=== PATIENT | female | born 1940 | race Caucasian/White ===

== ENCOUNTER 2018-10-21 09:50 | Inpatient (IN) | payer OTHER ==
--- OUTSIDE RECORDS SUMMARY | 2018-10-21 11:02 | XMS REPORT | Continuity of Care Document ---
:1940 Author Organization Interface Problems Problem Status Onset Classification Date Comments Source Date Reported Afib Active Problem 05/19/2018 [facility] Medications Medication Details Route Status Patient Ordering Order Source Instructions Provider Date Lisinop[facility] PO, Daily, [facility] gabap[facility] PO, 0 Active 03[facility]20[facility]20 [facility] Xarelto PO, 0 Active 03/20/20 [facility] Refill([facility]) 18 [facility] Flecainide PO, Q12H, Active 03/20/20 [facility] 0 18 [facility] Refill(s) metoprolol PO, Daily, Active 03/20/20 [facility] release Refill(s) Allergies, Adverse Reactions, Alerts Substance Category Reaction Severity Reaction Status Date Comments Source type Reported Immunizations Immunization Date Given Site Status Last Updated Comments Source Results Order Results Value Reference Date Interpretation Comments Source Name Range Vital Signs Vital Sign Value Date Comments Source Height 163.83 cm 03/18/2018 [facility] Weight 45.568 03/18/2018 [facility] BMI Calculated 16.98 03/18/2018 [facility] Systolic (mm Hg) 172 03/18/2018 [facility] Diastolic (mm Hg) 66 03/18/2018 [facility] Temperature Oral (F) 98.8 F 03/18/2018 [facility] Heart Rate 72 03/18/2018 [facility] Encounters Location Location Encounter Encounter Reason Attending ADM DC Status Source Details Type Number For Provider Date Date Visit [facility] Phone [id number] 02/09 02/11 [facility] Message /2017 [facility] [id number] IRMA GALAVIZ 03/18 Active [facility] [id number] Irma Galaviz 03/18 03/19 [facility] /2017 [facility] [id number] 04/01 04/03 [facility] Message /2017 [facility] [id number] 04/07 04/09 [facility] Message /2017 [facility] Phone [id number] 04/20 04/22 [facility] Message /2017 Neuro [facility] Phone [id number] 04/28 04/30 [facility] Message /2017 Neuro [facility] Procedures Procedure Code Date Perfomer Comments Source Resection [id number] [facility] Tendon operation [id number] [facility]
--- OUTSIDE RECORDS SUMMARY | 2018-10-21 11:02 | XMS REPORT | Clinical Summary ---
:1940 Author Organization [facility] Address [address] [place] [address] Care Team Providers Name Role Phone True Harris Primary Care Provider Allergies Active Allergy Reactions Severity Noted Date Comments Hydrocodone-Acetaminop Other (See Comments) 06/17/2017 "Crazy dreams, doesn't hen sit well with me" Medications Medication Sig Dispensed Refills Start Date End Date Status flecainide (TAMBOCOR) Take 50 mg by 0 Active 50 MG tablet mouth 2 (two) times daily. lisinopril Take 10 mg by 0 Active (PRINIVIL,ZESTRIL) 10 mouth daily. MG tablet metoprolol (TOPROL-XL) Take 50 mg by 0 Active 50 MG 24 hr tablet mouth daily. rivaroxaban (XARELTO) Take by mouth. 0 Active 15 mg Tab tablet PSYLLIUM SEED, WITH Take by mouth as 0 Active DEXTROSE, (FIBER ORAL) needed. cetirizine (ZYRTEC) 10 Take 10 mg by 0 Active MG tablet mouth daily. magnesium 250 mg Tab Take by mouth 0 Active tablet daily . Active Problems Not on file Social History Tobacco Use Types Packs/Day Years Used Date Current Every Day Smoker 1 50 Smokeless Tobacco: Never Used Alcohol Use Drinks/Week oz/Week Comments Yes 21 Cans of beer 12.6 Sex Assigned at Date Recorded Not on file Job Start Date Occupation Industry Not on file Not on file Not on file Travel History Travel Start Travel End No recent travel history available. Last Filed Vital Signs Not on file Plan of Treatment Not on file Results Not on fileafter 10/20/2017 Insurance Payer Benefit Plan / Subscriber ID Type Phone Address Group [employer] - MEDICARE AETNA MEDICARE HMO xxxxxxxx [phone] [address] [employer] POS PPO ADDIE HUNTER [phone]
--- OUTSIDE RECORDS SUMMARY | 2018-10-21 11:02 | XMS REPORT ---
:1940 [facility] Address [address] [place] [address] Dr. Francois [address] [place] [id number] Care Team Providers Name Role Phone RACHEL ARROYO Unavailable Unavailable Problems This patient has no known problems. Allergies, Adverse Reactions, Alerts This patient has no known allergies or adverse reactions. Medications This patient has no known medications. Results Test Description Test Time Test Comments Text Results Atomic Results Result Comments TISSUE EXAM 2017-07-02 18:20:00 Surgical Pathology Report Case: [id number] Authorizing Provider: Rachel Arroyo MD Collected: 07/01/2017 0919 Ordering Location: [facility] Endoscopy Received: 07/01/2017 1338 Services Pathologist: Wily Nielson MD Specimen: Biopsy, Gastric, gastric bx for erythema GASTRIC BIOPSY- CHRONIC INACTIVE GASTRITIS- NO INTESTINAL METAPLASIA, NO DYSPLASIA AND NO MALIGNANCY IDENTIFIED- NO HELICOBACTER PYLORI ORGANISMS IDENTIFIED ON WARTHIN-STARRY STAIN Signing Pathologist Direct Phone Line: [phone] signed by Wily Nielson MD on 07/02/2017 at 6:20 [id number], [id number] in appetite, erythemaGastric biopsyThe specimen is received in a formalin-filled container labeled with the patient's information and labeled "gastric biopsy" and consists of three round fragments of bellamy tissue ranging from 0.1 to 0.2 cm, submitted in A1. CG/ew Sections reveal fragments of benign antral and corpus mucosa with mild chronic inflammation. No active gastritis is seen. No Helicobacter pylori organisms are identified on Warthin - Starry stain. Intestinal metaplasia, dysplasia and malignancy are not seen.The following special studies were performed on this case and the interpretation is incorporated in the diagnostic report above:IMMUNOHISTOCHEMISTRY/SPECIAL STAIN SUMMARY:The results of immunohistochemical studies and/or special stains are as follows:Warthin-Starry stain - No Helicobacter pylori organisms identified
[2018-10-21] MEDS ORDERED: METOPROLOL TARTRATE 5 MG/5 ML INJ IV STA (11:37)
[2018-10-21 11:59] VITALS: BMI 16.0
[2018-10-21 12:10] LABS: Absolute Lymphocytes (CBC) 1.3 K/uL (0.7-4.9); Absolute Neutrophil 6.1 K/uL (1.8-8.0); Basophils % 0.2 % (0-1.3); Hematocrit 42.9 % (36.0-45.0); Lymphocytes % 15.1 % (15.3-44.8); MCH 34.4 pg (27.0-35.0); MCV 98.1 fL (80-100); MPV 7.5 fL (7.6-11.3); RBC Red Blood Cell Count 4.37 M/uL (3.86-4.86)
[2018-10-21 12:29] LABS: Albumin 4.2 g/dL (3.4-5.0); Bilirubin Total 0.9 mg/dL (0.2-1.0); Magnesium 1.8 mg/dL (1.8-2.4); Potassium 3.6 mmol/L (3.5-5.1); Protein, Total 8.2 g/dL (6.4-8.2)
[2018-10-21] MEDS: ALBUTEROL 2.5 MG/3 ML NEB SOL NEB SCH ×3 (12:53→20:00)
[2018-10-21] MEDS: IPRATROPIUM BROM 0.5MG/2.5ML NEB SCH ×3 (12:53→20:00)
--- NOTE | 2018-10-21 12:58 | RAD REPORT ---
EXAM DESCRIPTION: Yadira Pa And Lat (2 Views)10/21/2018 12:50 pm CLINICAL HISTORY: Shortness of breath COMPARISON: September 2018 FINDINGS: Lungs are markedly hyperaerated. The lungs appear clear of acute infiltrate. The heart is normal size IMPRESSION: COPD without visualization acute abnormality
[2018-10-21] MEDS ORDERED: CEFTRIAXONE 1 GM/NS 50 ML 1 GM/50 ML BAG IV SCH (14:00)
[2018-10-21] MEDS: CEFTRIAXONE/SWI 1gm 1 GM/10 ML SYR IV SCH ×2 (14:21→20:28)
[2018-10-21] MEDS: METHYLPREDNISOLONE 40 MG INJ IV SCH ×2 (14:22→17:37)
[2018-10-21] MEDS: METOPROLOL TAR 25 MG TAB PO SCH (17:35)
[2018-10-21] MEDS: RIVAROXABAN 15 MG TABLET PO SCH (17:37)
[2018-10-21 18:35] LABS: Urine Appearance CLEAR; Urine Blood NEGATIVE (NEG); Urine Color YELLOW; Urine Glucose NEGATIVE (NEG); Urine Protein 1+ (NEG); Urine pH 6.5 (5.0-7.0)
[2018-10-21] MEDS ORDERED: POTASSIUM CL SA 10 MEQ TAB PO ONE (19:00)
[2018-10-21 19:04] LABS: Urine Bilirubin 1+ (NEG)
[2018-10-21] MEDS ORDERED: MAGNESIUM SULFATE 1 gm IVPB 1 GM/100 ML BAG IV ONE (19:04)
[2018-10-21 19:16] LABS: Urine Bacteria 20-50 /HPF (<20); Urine Culture Reflex Order REFLEXED; Urine Mucus 2+ /HPF (NONE SEEN); Urine RBC <5 /HPF (NONE SEEN)
[2018-10-21] MEDS: FLECAINIDE 50 MG PO SCH (20:28)
[2018-10-22] MEDS: IPRATROPIUM BROM 0.5MG/2.5ML NEB SCH ×6 (00:10→20:25)
[2018-10-22] MEDS: ALBUTEROL 2.5 MG/3 ML NEB SOL NEB SCH ×5 (00:10→15:45)
[2018-10-22] MEDS: METHYLPREDNISOLONE 40 MG INJ IV SCH ×3 (00:33→16:21)
--- NOTE | 2018-10-22 04:47 | HP ---
Date of Admission: 10/21/2018 Chief Complaint: Shortness of breath, cough, congestion. History Of Present Illness: This is a 77-year-old pleasant female patient who lives at home with her , who was sick with acute bronchitis recently and he is improving, but in last few days, the patient started getting sick with cough, chest congestion, shortness of breath, coughing up yellowish -colored mucus. She has a lot of wheezing and she gets short of breath just walking in the room, jozef ing few steps. She feels very weak and tired. She came into office today, after she was evaluated, decision was made to admit her to hospital as I was concerned about pneumonia and acute exacerbation of COPD. The patient's heart rate at office was noted to be 156, irregular, and she has a history of atrial fibrillation in the past. Lately, she has been in sinus rhythm, and I believe that with this acute illness, she has gone back into atrial fibrillation. I did contact her inspector type, Dr. Cal swanson. Dr. Troy had prescribed her Xarelto 15 mg p.o. daily for atrial fibrillation, but sometime i n March or April of this year, he discontinued Xarelto and started her on Plavix after he did angioplast y with stent placement in her leg. So, currently the patient is on aspirin and Plavix. I did talk t o Dr. Troy about today's office visit and problem with atrial fibrillation again and he agreed to discontinue Plavix and advised to add Xarelto 15 mg daily and to continue aspirin 81 mg daily. Past Medical History: Significant for diverticulosis, osteopenia, paroxysmal atrial fibrillation, pe ripheral vascular disease, hyperlipidemia, hypertension, peripheral vascular disease, anxiety. Past Surgical History: Partial colectomy in 2000 due to diverticulitis; angioplasty of left leg on 2017; angioplasty of right leg on March 21, 2018; hysterectomy; appendectomy; cataract surgery. Allergies: NO KNOWN ALLERGIES. Family History: Not pertinent. Social History: Positive for smoking. Use of alcohol negative. Review of Systems: Respiratory: As mentioned above. Constitutional: As mentioned above. All other systems reviewed and negative. Medications: Tawnya 180 mg p.o. daily as needed for allergies, amlodipine 5 mg p.o. daily, aspirin 81 mg p.o. daily, clopidogrel 75 mg p.o. daily, atorvastatin 20 mg p.o. daily, Caltrate Plus D 1 tabl et 2 times a day, flecainide 50 mg p.o. 2 times a day, lisinopril 20 mg 1 tablet 2 times a day, magne sium oxide 250 mg 1 tablet p.o. daily, metoprolol-XL 50 mg 1 tablet p.o. daily. Physical Examination: Vital Signs: At office when I saw her today, her height was 64 inches; weight 99.2 pounds; blood pre ssure 114/84; pulse 156, irregular; temperature 99.2; respiratory rate 18. General: The patient appears weaker than normal, not in any respiratory distress at rest. HEENT: Head atraumatic, normocephalic. Conjunctivae nonerythematous. Sclerae white. Mouth, no thr ush or edema noted. Ears/Nose, no mass, lesion, discharge noted. Neck: Supple. No JVD, lymph nodes, bruit, thyromegaly noted. Lungs: Scattered wheezing in both lung carol[place] and rales in the right lower lung field mostly. Other lung field has scattered rales, but mostly concentrated in the right lower lung field. Heart: Normal heart sounds, no murmur or gallop. Abdomen: Soft, bowel sounds normal. No guarding, rigidity, tenderness, mass, hepatosplenomegaly, dis tention, or bruit noted. Extremities: No leg edema. No calf tenderness. Skin: No rash, ulcer, cellulitis. Lymphatics: No lymph node enlargement in neck, supraclavicular, infraclavicular region. Neuro: No focal neurological deficit. Chest: Unremarkable. External Genitalia: Deferred. Rectal: Deferred. Laboratory Data: White count 8.4, hemoglobin 15, platelets 324. Sodium 135, potassium 3.6, chloride 99, bicarb 26, BUN 10, creatinine 0.9, glucose 103. Procalcitonin less than 0.05. Liver function t ests normal. Chest x-ray, changes of COPD. No definite infiltrate noted on chest x-ray. Impression: 1.Acute exacerbation of chronic obstructive pulmonary disease. 2.Pneumonia. 3.Atrial fibrillation with rapid ventricular rate. 4.Hypertension. 5.Hyperlipidemia. 6.Peripheral vascular disease. 7.Diverticulosis. 8.Osteopenia. Plan: Admit the patient to hospital for further evaluation and management of this problem. The ora ent is appropriate for inpatient and is expected to spend 2 midnights in hospital. Home medications will be continued per order. We will discontinue her Plavix, continue aspirin, add Xarelto per order , start oxygen nebulizer treatment using albuterol and Atrovent, start IV steroid and IV antibiotics per order. Blood culture, sputum culture will be done, and IV Lopressor x1 dose was ordered upon adm ission as of this evening. We will start her on metoprolol 25 mg twice a day. Details and plan of t reatment discussed with her. I will see her tomorrow for followup. ANTONIETA/MODFlip Voice ID: [id number]
--- NOTE | 2018-10-22 05:17 | EKG ---
Test Date: 2018-10-21 Test Time: 12:57:19 Surgery Aide: JOYCE MEASUREMENT RESULTS: Intervals: Rate: 118 WV: QRSD: 76 QT: 324 QTc: 454 Lawrence: P: WV: QRS: 58 T: 50 INTERPRETIVE STATEMENTS: Atrial flutter with variable AV block with premature ventricular or aberrantly conducted complexes Septal infarct, age undetermined Abnormal ECG Compared to ECG 04/18/2009 09:39:26 Ventricular premature complex(es) now present Sinus rhythm no longer present Myocardial infarct finding still present Electronically Signed On 10-22-18 05:17:10 NURSE ORTHOPAEDIC by Donnie Ayala
[2018-10-22] MEDS: METOPROLOL TAR 25 MG TAB PO SCH ×2 (05:32→17:36)
[2018-10-22 05:58] LABS: Potassium 3.9 mmol/L (3.5-5.1)
[2018-10-22] MEDS ORDERED: POTASSIUM CL SA 10 MEQ TAB PO ONE (06:07)
[2018-10-22] MEDS: CEFTRIAXONE/SWI 1gm 1 GM/10 ML SYR IV SCH ×2 (08:27→21:13)
[2018-10-22] MEDS: FLECAINIDE 50 MG PO SCH ×2 (08:27→21:13)
[2018-10-22] MEDS ORDERED: AMLODIPINE 5 MG PO SCH (09:00)
--- NOTE | 2018-10-22 11:32 | RAD REPORT ---
EXAM DESCRIPTION: CT - Thorax Wo Con CLINICAL HISTORY: Chest pain COPD, rule out pneumonia COMPARISON: Thorax Wo Con dated 05/16/2017; Chest Pa And Lat (2 Views) dated 10/21/2018 FINDINGS: Mild COPD is present. Subtle tree-in-bud opacities are present in the posterior lingula an d in the posterior left lower lobe probably representing mild aspiration or atypical infection. Minim al similar opacities are seen posterior right base. No lobar consolidation typical of bacterial pneum onia seen. No pleural thickening or pleural effusion. No pneumothorax. No axillary, mediastinal or hilar adenopathy. No concerning bony finding. No gross upper abdominal finding. All CT scans are performed using dose optimization technique as appropriate and may include automated exposure control or mA/KV adjustment according to patient size. IMPRESSION: Mild COPD is noted with subtle tree-in-bud opacities as described.Slight aspiration or a typical infection is the most likely etiology.
--- NOTE | 2018-10-22 12:42 | ECHO ---
HEIGHT: 5 ft 5 in WEIGHT: 96 lb 11.2 oz DATE OF STUDY: 10/22/[address]: Maurice Owusu MD 2-DIMENSIONAL: YES M.MODE: YES DOPPLER: YES COLOR FLOW: YES TDS: NO PORTABLE: NO DEFINITY: NO BUBBLE STUDY: NO DIAGNOSIS: ATRIAL FIBRILLATION CARDIAC HISTORY: CATHERIZATION: NO SURGERY: NO PROSTHETIC VALVE: NO PACEMAKER: NO MEASUREMENTS (cm) DIASTOLIC (NORMALS) SYSTOLIC (NORMALS) IVSd 0.8 (0.6-1.2) LA Diam 2.9 (1.9-4.0) LVEF 66% LVIDd 3.5 (3.5-5.7) LVIDs 2.3 (2.0-3.5) %FS 35% LVPWd 0.9 (0.6-1.2) Ao Diam 2.9 (2.0-3.7) 2 DIMENSIONAL ASSESSMENT: RIGHT ATRIUM: NORMAL LEFT ATRIUM: NORMAL RIGHT VENTRICLE: NORMAL LEFT VENTRICLE: NORMAL TRICUSPID VALVE: NORMAL MITRAL VALVE: NORMAL PULMONIC VALVE: NORMAL AORTIC VALVE: NORMAL PERICARDIAL EFFUSION: NONE AORTIC ROOT: NORMAL LEFT VENTRICULAR WALL MOTION: NORMAL DOPPLER/COLOR FLOW: MILD MITRAL AND TRICUSPID REGURGITATION. NORMAL RIGHT VENTRICULAR SYSTOLIC PRESSURE. COMMENTS: NORMAL 2D ECHOCARDIOGRAM. MILD MITRAL AND TRICUSPID REGURGITATION. TECHNOLOGIST: Chuy DAMON
[2018-10-22] MEDS: RIVAROXABAN 15 MG TABLET PO SCH (16:21)
[2018-10-22] MEDS: LEVALBUTEROL 0.63 MG/3 ML NEB NEB SCH (20:25)
[2018-10-22] MEDS: ENSURE CLEAR 200 ML CAN PO SCH (21:14)
[2018-10-22] MEDS: ASPIRIN PO SCH (22:28)
--- NOTE | 2018-10-23 00:25 | PN ---
Date of Progress Note: 10/22/2018 Subjective: The patient was seen this morning for followup. No new complaints or problems reported by patient. She still has some cough, congestion, shortness of breath. Denies any chest pain. Objective: Vital Signs: Reviewed. HEENT: Unremarkable. Lungs: Bilateral good equal air entry. Presence of some scattered wheezing with some rales noted. Not in respiratory distress. Heart: Sounds normal. Abdomen: Soft. Bowel sounds normal. No guarding, rigidity, tenderness, or distention. Extremities: No leg edema. Laboratory Data: Sodium 130, potassium 3.9, chloride 97, bicarb 25, BUN 15, creatinine 0.70, glucose 166. Impression: 1.Acute exacerbation of chronic obstructive pulmonary disease. 2.Rule out pneumonia. 3.Atrial fibrillation with rapid ventricular rate. 4.Peripheral vascular disease. Plan: We will go ahead and continue current aspirin and Xarelto. Cardiology consultation is appreci ated and details were discussed with Dr. Owusu who was consulted from Cardiology. She has recommen ded to go up on the patient's dose of flecainide from 50 mg 2 times a day to 100 mg 2 times a day. C AT scan of the chest was ordered without contrast today. We will follow up on that result. Continue Xarelto. Continue current antibiotic, steroid, oxygen, nebulizer treatment. ANTONIETA/MODL Voice ID: [id number] Report ID: [id number]
[2018-10-23] MEDS: METHYLPREDNISOLONE 40 MG INJ IV SCH ×3 (00:41→17:03)
[2018-10-23] MEDS: IPRATROPIUM BROM 0.5MG/2.5ML NEB SCH ×5 (01:05→19:32)
[2018-10-23] MEDS: LEVALBUTEROL 0.63 MG/3 ML NEB NEB SCH ×4 (01:05→19:32)
[2018-10-23] MEDS: METOPROLOL TAR 25 MG TAB PO SCH ×2 (05:49→17:04)
[2018-10-23 06:36] LABS: BUN Blood Urea Nitrogen 17 mg/dL (7-18); Bicarbonate 25 mmol/L (21-32); Glucose Level 116 mg/dL (74-106); Sodium Level 132 mmol/L (136-145)
[2018-10-23] MEDS: ENSURE CLEAR 200 ML CAN PO SCH ×2 (09:00→20:41)
[2018-10-23] MEDS: ASPIRIN PO SCH (09:10)
[2018-10-23] MEDS: CEFTRIAXONE/SWI 1gm 1 GM/10 ML SYR IV SCH ×2 (09:10→20:40)
[2018-10-23] MEDS: FLECAINIDE 100 MG TAB PO SCH ×2 (09:13→20:40)
--- NOTE | 2018-10-23 13:00 | CON ---
Reason For Consult: Atrial fib. History Of Present Illness: Mrs. Dozier is 77. She has COPD. She is a heavy smoker at least until a week ago, started having worsening of COPD symptoms along with bronchitis symptoms and developed AF ib. The patient has had AFib in the past. She had been on flecainide 50 b.i.d. and Xarelto, and was well controlled, but has been in atrial fib here in our hospital for roughly 24 hours. She has neve r had myocardial infarction, stroke, or vascular disease. Medications: Outpatient medications have been Tawnya, Plavix, flecainide, lisinopril, amlodipine, a spirin, atorvastatin, metoprolol. Allergies: SHE IS ALLERGIC TO HYDROCODONE AND TRAMADOL. Physical Examination: Vital Signs: 5 feet 5 inches, 96 pounds. Body mass index 16. Underweight, remain seated. Blood pr essure 124/73. Neck: No carotid bruit. Lungs: Clear. Heart: Irregularly irregular, but going roughly 80 beats per minute. Impression: The patient should be on full anticoagulant. She is being treated for what looks like b ronchitis, although I do not think she actually has pneumonia. She is receiving ceftriaxone. If she is still in atrial fib tomorrow, I think we should attempt a cardioversion. We will keep her n.p.o. Then, for now, we will let her continue on Xarelto and a slightly higher dose of flecainide. Her e chocardiogram shows normal ejection fraction. No significant abnormality. Thank you very much for your kind referral of Mrs. Dozier. I will follow her with you. JULIA Voice ID: [id number] Report ID: [id number]
[2018-10-23] MEDS: RIVAROXABAN 15 MG TABLET PO SCH (17:04)
[2018-10-24] MEDS: METHYLPREDNISOLONE 40 MG INJ IV SCH ×2 (00:28→10:25)
[2018-10-24] MEDS: LEVALBUTEROL 0.63 MG/3 ML NEB NEB SCH ×2 (02:25→08:00)
[2018-10-24] MEDS: IPRATROPIUM BROM 0.5MG/2.5ML NEB SCH ×2 (02:25→08:00)
[2018-10-24] MEDS: METOPROLOL TAR 25 MG TAB PO SCH (05:48)
[2018-10-24] MEDS: FLECAINIDE 100 MG TAB PO SCH (07:42)
[2018-10-24] MEDS ORDERED: FLUMAZENIL 0.1 MG/ML (5 mL VIAL) IV ONE (07:52)
[2018-10-24] MEDS ORDERED: MIDAZOLAM HCL 2 MG/2 ML INJ ONE (07:52)
[2018-10-24] MEDS: ENSURE CLEAR 200 ML CAN PO SCH (09:00)
[2018-10-24] MEDS: CEFTRIAXONE/SWI 1gm 1 GM/10 ML SYR IV SCH (10:26)
[2018-10-24] MEDS: ASPIRIN PO SCH (12:27)
[2018-10-24 13:02] VITALS: BP 117/67; TEMP 98.3
[2018-10-24 14:33] VITALS: O2SAT 96
--- NOTE | 2018-10-24 14:46 | PN ---
Date of Progress Note: 10/23/2018 Subjective: The patient was seen for followup in the morning. No new complaints or problems reporte d by the patient. Her family was with her at bedside. Objective: Vital Signs: Reviewed. HEENT: Unremarkable. Lungs: Clear to auscultation. Her cough, congestion, wheezing, shortness of breath has significantl y improved. Not using any accessory muscles of respiration. Heart: Sounds normal. Abdomen: Soft. Bowel sounds normal. No guarding, rigidity, tenderness, distention. Extremities: No leg edema. Laboratory Data: Reviewed. Impression: 1.Pneumonia. 2.Acute exacerbation of chronic obstructive pulmonary disease. 3.Atrial fibrillation with rapid ventricular rate. 4.Hypertension. Plan: The patient's breathing has improved significantly. We will continue current antibiotic stero id nebulizer treatment per order. Yesterday, albuterol was stopped and Xopenex was started. We will continue Xopenex and Atrovent per order. Continue anticoagulation medication Xarelto. Dr. Jamie avilez Cardiology evaluated the patient and the patient is still in atrial fibrillation with rapid ventr icular rate with heart rate 130. She will be getting a higher dose of flecainide 100 mg twice a day per order and if her atrial fibrillation with rapid ventricular rate problem does not improve by ronald , then electrical cardioversion will be done by barrel finisher tomorrow. All these details were discussed with the patient and patient's family members. She understands and agre es with the treatment plan. ANTONIETA/MODL Voice ID: [id number] Report ID: [id number]
--- NOTE | 2018-10-24 18:16 | OP ---
Surgeon: Donnie Ayala MD Procedure: Direct current cardioversion. Indication: Atrial fibrillation, persistent. Procedure In Detail: The patient was fasting except for oral medicines. She had received Xarelto as recently is 12 hours before the procedure, and flecainide within an hour of the procedure. She was brought to the ICU. Anterior-posterior paddles were placed on her chest. We gave her 4 mg of Versed titrated to an adequate level of sedation. She was shocked with a single shock synchronized to the QRS complex, 100 joules. This successfully changed her rhythm to sinus. An EKG will be done when kirt santa awakens. She will be able to resume her diet and probably be discharged later today. KIRT/BRITNEY Voice ID: [id number] Report ID: [id number]
--- NOTE | 2018-10-25 06:08 | DS ---
Date of Discharge: 10/24/2018 The patient was seen this morning for followup. She was in ICU, prior to my arrival, she had just baugh ccessful electrical cardioversion. She was back to sinus rhythm with heart rate 70 per minute sinus rhythm. The patient was awake, alert, communicating with me, but she was asking same questions 3 ana es. I did talk to the patient's outside ICU in the waiting room and all the details were dis cussed with him as well. Physical Examination: HEENT: Unremarkable. Lungs: Clear to auscultation. Heart: Sounds normal. Abdomen: Soft. Bowel sounds normal. No guarding, rigidity, tenderness, distention. Extremities: No leg edema. Discharge Medications And Instructions: 1.Continue all prior home medication except discontinue clopidogrel. 2.Discontinue flecainide 50 mg dose. 3.Start Symbicort inhaler 160 mcg 2 puffs 2 times a day and rinse mouth with water after using it. 4.Cefuroxime 250 mg p.o. 2 times a day for 1 week. 5.Flecainide 100 mg p.o. twice a day. 6.Xarelto 15 mg p.o. daily with supper. 7.Follow up at my office during second week of November 2018. 8.Follow up with her night stocker, Dr. Troy, in next 2 weeks. Hospital Course: A 77-year-old female patient came into office with cough, congestion, shortness of breath. Please see dictated H and P for more information. The patient was in atrial fibrillation wi th rapid ventricular rate with heart rate 156 beats per minute. I was concerned about possibility of pneumonia along with acute exacerbation of COPD. After I talked to her, decision was made to admit her to hospital for further evaluation and management of this problem. I did communicate with her ca rdiologist, Dr. Troy, on the day of admission. The patient was taking Xarelto 15 mg daily for atr ial fibrillation up until March or April of this year, and at that time, Dr. Troy discontinue that an d started her on clopidogrel after he did angioplasty on her leg for peripheral vascular disease. Th e patient remains on her aspirin 81 mg daily. Considering now, the patient has gone into atrial fibr illation with rapid ventricular rate. Dr. Troy has recommended for the patient to stop clopidogre l and restart her Xarelto and continue her aspirin 81 mg daily. After she was admitted to the hospit al, we gave her medication, which was her aspirin, Xarelto. Her other home medications were continue d including her flecainide. On the day of admission, IV metoprolol 5 mg was given to help control he r heart rate. Cardiology consultation was obtained from Dr. Owusu, who did echocardiogram showing normal ejection fraction. Dr. Owusu recommended to increase the dose of flecainide and to continue her anticoagulation medication. Increased dose of flecainide did not help atrial fibrillation with rapid ventricular rate problem, so this morning as per recommendation night stocker, Dr. Ayala, michael rmed electrical cardioversion and the patient converted to normal sinus rhythm. The patient will be transferred out of ICU to regular room this morning and night stocker has released her to go home late r on today. Medically, she is stable for discharge later today and I did discuss with her about travis ge in the medication. I also have discussed change of medications with her and will provide written instructions. Laboratory Data: Labs and investigation done during this hospitalization, white count when she came in was 8.4, hemoglobin 15, platelets 324. Urinalysis showed 2+ leukocyte esterase, wbc 10 to 20, larisa teria 20 to 50. Urine culture did not grow any specific bacteria. Upon admission, sodium 135, potas sium 3.6, chloride 99, bicarb 26, BUN 10, creatinine 0.90, glucose 103. Liver function tests unremar kable. Chest x-ray, no infiltrate. CAT scan of the chest without contrast shows changes of COPD and tree-in-bud appearance indicating some pneumonia, but no focal consolidation. Echocardiogram showed normal ejection fraction. Final Diagnoses: 1.Pneumonia. 2.Acute exacerbation of chronic obstructive pulmonary disease. 3.Atrial fibrillation with rapid ventricular rate, paroxysmal, converted to sinus rhythm with electr ical cardioversion. 4.Hypertension. 5.Hyperlipidemia. 6.Peripheral vascular disease. 7.Diverticulosis. 8.Osteopenia. ANTONIETA/MODL Voice ID: [id number] Report ID: [id number]
--- NOTE | 2018-10-25 11:33 | EKG ---
Test Date: 2018-10-24 Test Time: 08:43:00 Strategic Advisor: RNNT MEASUREMENT RESULTS: Intervals: Rate: 73 CO: 196 QRSD: 74 QT: 402 QTc: 442 [place]: P: 86 CO: 196 QRS: -2 T: 60 INTERPRETIVE STATEMENTS: Normal sinus rhythm Septal infarct, age undetermined Abnormal ECG Compared to ECG 10/21/2018 12:57:19 Atrial flutter no longer present Ventricular premature complex(es) no longer present Myocardial infarct finding still present Electronically Signed On 10-25-18 11:33:10 NURSE OUTREACH CASE MANAGER by Donnie Ayala
--- NOTE | 2018-10-26 02:20 | CON ---
Date of Consultation: 10/22/[address] Gannon's service on . Reason For Consultation: Atrial fibrillation. History Of Present Illness: Ms. Dozier is a 77-year-old woman, who was admitted with pneumonia on . She was noted to have atrial flutter and fibrillation on her EKG on telemetry. Chest x-ra y shows COPD. Ms. Dozier's atrial fibrillation and flutter are chronic. She is on flecainide 50 mg b.i.d. as well as Xarelto. She also has a history of hypertension, dyslipidemia. She is not symptom atic with her arrhythmia. Denied PND, orthopnea, pedal edema. She actually does not have palpitatio ns or syncope. Came in with shortness of breath, chills, and evidence of pneumonia on x-ray. She is improving on antibiotics. O2 saturations are adequate. Past Medical History: Stated earlier. Review of Systems: Negative. Social History: Negative. Family History: Noncontributory. Medications: Her medications at home include Norvasc, aspirin, Lipitor, Plavix, lisinopril, metoprol ol, and flecainide. The patient apparently has been on Xarelto, but this was discontinued. She take s aspirin and Plavix instead now. Physical Examination: General: She was pleasant, no acute distress, atrial fibrillation, heart rate of 110. HEENT: Negative. Neck: Supple with no bruit. Chest: Clear on the right. She had crackles on the left base. Abdomen: Benign. Extremities: Revealed no clubbing, cyanosis, or edema. Cardiac: Revealed an irregularly irregular rhythm and rate without any murmurs, gallops, or rubs. Diagnostic Data: Chest x-ray shows COPD and pneumonia. EKG showed atrial flutter. Rest of the bloo d work is fairly unremarkable. Impression And Plan: 1.Chronic and recurrent atrial fibrillation and flutter. I think we can increase her flecainide dos e to 100 mg b.i.d. I suggest that she stay on the Xarelto instead of the Plavix. I discussed the ca se with Dr. Gannon. There is an echocardiogram pending. I would continue the metoprolol as well. 2.Pneumonia, on antibiotics. 3.Hypertension, well controlled on Norvasc, lisinopril, metoprolol. 4.Dyslipidemia, on Lipitor. I will continue her present regimen otherwise. MILADIS/BRITNEY Voice ID: [id number] Report ID: [id number]
== END 2018-10-24 14:48 | disposition home or self-care (01) | DRG 190 ==
LOC: 4TH 10:58 → 3RD-ICU 10-24 08:00 → 4TH 10-24 10:50
PROVIDERS: ADMIT Internal Medicine; ATTEND Internal Medicine
PROC: 5A2204Z Restoration of Cardiac Rhythm, Single (ICD-10-PCS; principal; 2018-10-24)
DX: J44.0 Chronic obstructive pulmonary disease with (acute) lower respiratory infection (principal); J18.9 Pneumonia, unspecified organism; J44.1 Chronic obstructive pulmonary disease with (acute) exacerbation; I48.0 Paroxysmal atrial fibrillation; I10 Essential (primary) hypertension; E78.5 Hyperlipidemia, unspecified; I73.9 Peripheral vascular disease, unspecified; K57.90 Diverticulosis of intestine, part unspecified, without perforation or abscess without bleeding; M85.80 Other specified disorders of bone density and structure, unspecified site; F17.210 Nicotine dependence, cigarettes, uncomplicated
CPT/HCPCS: 36415; 71046; 71250; 80048; 80053; 81001; 83735; 84145; 85025; 87040; 87070; 87086; 87088; 87205; 93005; 93306; 94640; J0696; J2250; J2920; J3475

== ENCOUNTER 2022-07-16 10:18 | Emergency (ER) | payer OTHER ==
--- OUTSIDE RECORDS SUMMARY | 2022-07-16 10:23 | XMS REPORT | Continuity of Care Document ---
:1940 Author Organization [facility] t Address [address] [place] [address] Care Team Providers Name Role Phone PCP, PATIENT DOES NOT HAVE A Primary Care Physician Unavaila Sky Bowles Attending Clinician Unavailable Vaccine, Ang Db Cbc Fam Attending Clinician Unavailable Sarah Fragoso MD Attending Clinician SARAH FRAGOSO Attending Clinician Unavailable Deric Wilks Attending Clinician DESTINI ARROYO Attending Clinician Unavailable Sky Hope Admitting Clinician Unavailable DESTINI ARROYO Admitting Clinician Unavailable Payers Payer Name Policy Type Policy Number Effective Date Expiration Date S ource Problems Condition Condition Condition Status Onset Resolution Last Treating Co mments Source Name Details Category Date Date Treatment Clinician Date Essential Essential Disease Active Uni vers hypertensi hypertensi 7-11 it y of on on 00:00: [place] 00 [facility] Underweigh Underweigh Disease Active U elvin t t 7-11 ity of 00:00: [address] Atrial Atrial Problem Active 2018-05-19 Mo donell fibrillati fibrillati 15:31:22 l on on [place] (disorder) (disorder) Active Problem 05/19/2018 [facility] Allergies, Adverse Reactions, Alerts Allergy Allergy Status Severity Reaction(s) Onset Inactive Treating Comm ents Source Name Type Date Date Clinician hydrocod DA Active U UNKNOWN [facility] one 05-01 [place] 00:00: [address] Hydrocod Drug Active Other (See "Crazy [facility] one-Acet Allergy Comments) 06-17 dreams, Alejandro es aminophe 00:00: doesn't Medical n 00 sit well Center with me" hydrocod DA Active SV NAUSEA/VOMIT HC A one ING/STOMACH 01-01 [place] PROBLEMS 00:00: [address] HYDROCOD DRUG Active N/V Univers ONE INGREDI 07-26 ity of 00:00: [address] Hydrocod Propensi Active Nausea Univer s one ty to and/or 07-26 ity of adverse Vomiting 00:00: [place] reaction 00 [facility] Social History Social Habit Start Date Stop Date Quantity Comments Source History of tobacco Cigarette Smoker [facility] Exposure to 2022-02-24 2022-03-06 Not sure [facility] SARS-CoV-2 (event) 00:00:00 09:44:00 [facility] Alcohol intake 2017-07-02 2017-07-02 [facility]er [facility] 00:[facility]:00 of alcohol [facility] (finding) Cigarettes smoked 2017-06-17 2017-06-[address] [facility] current (pack per 00:00:00 00:00:00 [facility] Center day) - Reported Cigarette 2017-06-17 2017-06-[address] [facility] pack-years 00:00:00 00:00:00 [facility] Tobacco use and 2017-06-17 2017-06-[address] [facility] exposure 00:00:00 00:00:00 [facility] Sex Assigned At [address] [facility] 00:00[facility] Smoking Status Start Date Stop Date Source Social History 2018-03-20 17:19:36 Patrick li Current every day smoker 2017-06-17 00:00:00 [facility] Medications Ordered Filled Start Stop Current Ordering Indication Dosage Frequency Signature Comments Components Source Medication Medication Date Date Medication? Clinician (SIG) Name Name Lisinopril Yes PO, Daily, M emoria 5-11 0 l 17:19: Refill(s) gabapentin 2017- Yes PO, 0 Memori a 5-11 Refill(s) l 17:19: Xarelto 2017- Yes PO, 0 Memoria 5-11 Refill(s) l 17:19: Flecainide 2017- Yes PO, Q12H, Ca moria 5-11 0 l 17:19: Refill(s) metoprolol Yes PO, Daily, M emoria extended 5-11 0 l release 17:19: Refill(s) flecainide Yes 50mg Take 50 mg U nivers 50 mg 4-04 by mouth 2 ity of tablet 15:09: (two) [place] 48 times Medical daily. [place] rivaroxaban Yes 15mg Take 15 mg Univers (XARELTO) 4-04 by mouth 2 ity of 15 mg 15:09: (two) [place] tablet 48 times Medical daily. [place] flecainide Yes 50mg Q.5D Take [address] (TAMBOCOR) 8-22 by mouth 2 Alejandro es 50 MG 10:18: (two) Medical tablet 20 times Center daily. lisinopril Yes 10mg QD Take [address] (PRINIVIL,Z 8-22 by mouth Luke s ESTRIL) 10 10:18: daily. Medic al MG tablet 20 Ucon metoprolol Yes 50mg QD Take [address] (TOPROL-XL) 8-22 by mouth Luke s 50 MG 24 hr 10:18: daily. Medi mitchell tablet 20 Ucon rivaroxaban Yes Take by [facility] St (XARELTO) 8- mouth. [facility]ukes 15 mg Tab 10:18: Medical tablet 20 Ucon PSYLLIUM Yes Take by [facility] St SEED, WITH 8-22 mouth as Lukes DEXTROSE, 10:18: needed. Medic al (FIBER 20 Center ORAL) cetirizine Yes 10mg QD Take [address] (ZYRTEC) 10 8-22 by mouth Luke s MG tablet 10:18: daily. Medica l [address] [place] [address] magnesium Yes QD Take by [facility] 250 mg Tab 8-22 mouth [facility]ukes tablet 10:18: daily . [address] Magnesium Yes Take by Unive rs 250 mg Tab 6-01 mouth. ity of 09:07: [address] CALCIUM Yes Take by Univers CARBONATE/V 6-01 mouth. ity of ITAMIN D2 09:07: [place] (CALCIUM [address] [place] [address] 600 + D [place] ORAL) Potassium Yes Take by Unive rs 99 mg Tab 6-01 mouth. ity of 09:07: [address] Branch lisinopril Yes TAKE 1 Unive rs 10 mg 6-01 TABLET BY ity of tablet 00:00: MOUTH [place] 00 EVERY DAY. Medical Branch paroxetine Yes 20mg Take 1 Unive rs 20 mg 6-01 tablet by ity of tablet 00:00: mouth [place] 00 daily. Medical Branch metoprolol Yes 50mg Take 50 mg U nivers succinate 06 by mouth ity of XL (TOPROL 00:00: daily. [place] XL) 50 mg 00 [facility] 24 hr Branch tablet Immunizations Ordered Filled Immunization Date Status Comments [facility] e Immunization Name Name SARS-COV-2 COVID-19 2022-03-06 Completed Unive rsity of MODERNA 0.25ML 00:00:00 [place] Medi mitchell BOOSTER VACCINE Branch SARS-COV-2 COVID-19 2021-10-02 Completed Unive rsity of MODERNA 0.25ML 00:00:00 [place] Medi mitchell BOOSTER VACCINE Branch SARS-COV-2 COVID-19 2021-01-08 Completed Unive rsity of MODERNA VACCINE 00:00:00 [facility] ica Branch SARS-COV-2 COVID-19 2020-12-13 Completed Unive rsity of MODERNA VACCINE 00:00:00 [facility] Vital Signs Vital Name Observation Time Observation Value Comments Source Height 2018-03-18 12:00:00 163.83 cm [facility] Weight 2018-03-18 12:00:00 [facility] BMI Calculated 2018-03-18 12:00:00 Meaghan banks [place] Systolic (mm Hg) 2018-03-18 12:00:00 Mo nicole [place] Diastolic (mm Hg) 2018-03-18 12:00:00 Elke vera [place] Temperature Oral (F) 2018-03-18 12:00:00 98.8 F [facility] Heart Rate 2018-03-18 12:00:00 [facility] [place] Procedures Procedure Date / Time Performed Performing Clinician [facility] arina SARS-COV-2 COVID-19 2022-03-06 15:34:26 Doctor Unassigned, No [facility] [place] VACCINE Name Medical Branch BOOSTER,0.25ML,IM (MODERNA) [id number] 2021-09-24 00:00:00 PEPGR [facility] [id number] 2021-09-24 [id number] 2021-09-24 00:00:00 PEPGR [facility] [id number] 2021-09-24 00:00:00 PEPGR [facility] [id number] 2021-09-24 00:00:00 PEPGR [facility] Resection [facility] [place] [facility] Encounters Start End Encounter Admission Attending Care Care Encounter Source Date/Time Date/Time Type Type Clinicians Facility Department ID 2021-09-24 Inpatient EMMANUELLE Hope, HCAWU ADMI [id number] [facility] 08:30:00 Sky [id number] [facility] 2021-09-24 Inpatient EMMANUELLE Hope, HCAWU ADMI [id number] [facility] 08:30:00 Sky 42 [facility] 2022-03-06 2022-03-06 Imm/Inj Vaccine, Ang Db Cbc Fam [facility] 1. [id number] Univers 10:10:00 10:20:00 Visit Sarah Fragoso [id number] Mihir [id number] Burak as [place]?BLEA [id number] Ca dic[address] MEDICAL OFFICE BUILDING 2022-03-06 2022-03-06 [facility] [id number] [address] [place] [address] 10:10:00 10:10:00 SARAH ambrose [facility] [place] [facility] 2022-03-06 2022-03-06 Outpatient R [facility] [id number] Univers 10:10:00 10:10:00 [id number] arnol [facility] [place] [facility] 2021-09-24 2021-09-26 Inpatient EL Pepper, HCAWU TELE [id number] [facility] 16:12:00 11:28:00 Sky [id number] [facility] 2021-09-24 2021-09-26 Inpatient EL Pepper, HCAWU TELE [id number] [facility] 16:12:00 11:28:00 Sky Lugo [facility] 2021-09-20 2021-09-20 Outpatient EL Pepper, HCAWU 3DAY [id number] [facility] 09:00:00 23:00:00 Sky Pierson111 [facility] 2018-04-28 2018-04-30 Phone nullFlavo [facility] [id number] Memoria 15:12:00 04:59:59 Message r Clinic [facility] 06 [facility] 2018-04-28 2018-04-29 Outpatient MHMISCHER MHMISCHER [id number] 10:12:00 23:59:59 06 2018-04-20 2018-04-22 Phone nullFlavo [facility] [id number] Memoria 19:28:00 04:59:59 Message r Clinic [facility] 05 [facility] 2018-04-20 2018-04-21 Outpatient MHMISCHER MHMISCHER [id number] 14:28:00 23:59:59 05 2018-04-07 2018-04-09 Phone nullFlavo [facility] [id number] Memoria 20:28:00 04:59:59 Message r Clinic [facility] 04 [facility] 2018-04-07 2018-04-08 Outpatient MHMISCHER MHMISCHER [id number] 15:28:00 23:59:59 2018-04-01 2018-04-03 Phone nullFlavo [facility] [id number] Memoria 20:25:00 04:59:59 Message r Clinic [facility] 03 [facility] 2018-04-01 2018-04-02 Outpatient MHMISCHER MHMISCHER [id number] 15:25:00 23:59:59 03 2018-03-18 2018-03-19 Outpatient nullFlavo [facility] [id number] Memoria 16:00:00 04:59:59 r Clinic TM 00 l [place] 2018-03-18 2018-03-18 Outpatient Deric Wilks MAIASCHER MHMISCHER [id number] 11:00:00 23:59:59 Hwan 2018-03-18 2018-03-18 Outpatient Deric Wilks MISCHER MISCHER [id number] 11:00:00 23:59:59 Hwan 2018-03-18 2018-03-18 Outpatient DECLANJAZZ MARGARITA [id number] Memoria 11:00:00 11:00:00 00 l [place] 2018-02-09 2018-02-11 Phone nullFlavo [facility] [id number] Memoria 20:19:00 04:59:59 Message r [facility] l [place] 2018-02-09 2018-02-10 [id number] 15:19:00 23:59:59 00 Results Test Description Test Time Test Comments Results Result Comments Source BASIC METABOLIC PANEL 2021-09-26 08:55:00 Test Item Value Reference Range Interpretation Comme nts SODIUM (test code = NA) 138 MMOL/L 137-145 N POTASSIUM (test code = K) 3.1 MMOL/L 3.5-5.1 L CHLORIDE (test code = CL) 103 MMOL/L 98-107 N CARBON DIOXIDE (test code = CO2) 32 MMOL/L 22-30 H ANION GAP (test code = GAP) 6 MMOL/L 14-24 L GLUCOSE (test code = GLU) 100 MG/DL 74-106 BLOOD UREA NITROGEN (test code = 5 MG/DL 7-17 L BUN) GLOMERULAR FILTRATION RATE (test > 60 Reporting units: ml/min/1.73 code = GFR) m2 (Modified MD RD Formula)Referen ce Range: > or = 60 ml/min/1.7 3 m2 CREATININE (test code = CREAT) 0.50 MG/DL 0.52-1.04 L CALCIUM (test code = CA) 8.2 MG/DL 8.4-10.2 L [id number] 08:55:00 Test Item Value Reference Range Interpretation Comments MAGNESIUM (test code = MAG) 1.5 MG/DL 1.6-2.3 L BASIC METABOLIC [id number] 11:39:00 Test Item Value Reference Range Interpretation Comments SODIUM (test code = 135 MMOL/L 137-145 L NA) POTASSIUM (test code = 3.3 MMOL/L 3.5-5.1 L K) CHLORIDE (test code = 101 MMOL/L 98-107 N CL) CARBON DIOXIDE (test 26 MMOL/L 22-30 N code = CO2) ANION GAP (test code = 11 MMOL/L 14-24 L GAP) GLUCOSE (test code = 86 MG/DL 74-106 N GLU) BLOOD UREA NITROGEN 9 MG/DL 7-17 N (test code = BUN) GLOMERULAR FILTRATION > 60 Report ing units: RATE (test code = GFR) ml/mi n/1.73 m2 (Modified MDRD Formula)Referen ce Range: > or = 6 0 ml/min/1.73 m2 CREATININE (test code 0.70 MG/DL 0.52-1.04 N = CREAT) CALCIUM (test code = 8.2 MG/DL 8.4-10.2 L CA) CBC W/AUTO [id number] 11:17:00 Test Item Value Reference Range Interpretation Comments WHITE BLOOD CELL (test code = 10.6 K/MM3 3.8-9.8 H WBC) RED BLOOD CELL (test code = 3.53 M/MM3 3.58-4.97 L RBC) HEMOGLOBIN (test code = HGB) 12.1 G/DL 11.2-14.9 N HEMATOCRIT (test code = HCT) 36.3 % 33.2-43.5 MEAN CELL VOLUME (test code = 103 fL 80.7-99.1 H MCV) MEAN CELL HGB (test code = MCH) 34.3 pg 27.0-34.1 H MEAN CELL HGB CONCETRATION 33.3 % 32.2-35.7 N (test code = MCHC) RED CELL DISTRIBUTION WIDTH 13.0 % 12.1-15.2 N (test code = RDW) PLATELET COUNT (test code = 247 K/MM3 129-368 PLT) MEAN PLATELET VOLUME (test code 9.6 fl 7.4-10.4 N = MPV) NEUTROPHIL % (test code = NT%) 67.0 % 43-75 N IMMATURE GRANULOCYTE % (test 0.5 % 0.0-2.0 N code = IG%) LYMPHOCYTE % (test code = LY%) 21.1 % 14-44 N MONOCYTE % (test code = MO%) 11.1 % 4-13 N EOSINOPHIL % (test code = EO%) 0.1 % 0-6 N BASOPHIL % (test code = BA%) 0.2 % 0-2 N NUCLEATED RBC % (test code = 0.0 % 0-1.0 N NRBC%) NEUTROPHIL # (test code = NT#) 7.14 K/mm3 2.0-7.6 N IMMATURE GRANULOCYTE # (test 0.05 x10 3/uL 0-0.03 H code = IG#) LYMPHOCYTE # (test code = LY#) 2.24 K/mm3 1.0-3.8 N MONOCYTE # (test code = MO#) 1.18 K/mm3 0.1-0.8 H EOSINOPHIL # (test code = EO#) 0.01 K/mm3 0.0-0.2 N BASOPHIL # (test code = BA#) 0.02 K/mm3 0.0-0.2 N NUCLEATED RBC # (test code = 0.00 K/mm3 0.0-0.1 N NRBC#) [id number] 12:59:00 Test Item Value Reference Range Interpretation Comments ACT-ISTAT (test code = ACTI) 297 SEC 74-137 H [id number] 12:32:00 Test Item Value Reference Range Interpretation Comments ACT-ISTAT (test code = ACTI) 315 SEC 74-137 H [id number] 12:08:00 Test Item Value Reference Range Interpretation Comments ACT-ISTAT (test code = ACTI) 315 SEC 74-137 H [id number] 11:47:00 Test Item Value Reference Range Interpretation Comments ACT-ISTAT (test code = ACTI) 297 SEC 74-137 H [id number] 11:32:00 Test Item Value Reference Range Interpretation Comments ACT-ISTAT (test code = ACTI) 255 SEC 74-137 H BASIC METABOLIC [id number] 07:14:00 Test Item Value Reference Range Interpretation Comments SODIUM (test code = 137 MMOL/L 137-145 N NA) POTASSIUM (test code = 3.8 MMOL/L 3.5-5.1 N K) CHLORIDE (test code = 100 MMOL/L 98-107 N CL) CARBON DIOXIDE (test 30 MMOL/L 22-30 N code = CO2) GLUCOSE (test code = 93 MG/DL 74-106 N GLU) BLOOD UREA NITROGEN 14 MG/DL 7-17 N (test code = BUN) GLOMERULAR FILTRATION > 60 Report ing units: RATE (test code = GFR) ml/mi n/1.73 m2 (Modified MDRD Formula)Referen ce Range: > or = 6 0 ml/min/1.73 m2 CREATININE (test code 0.80 MG/DL 0.52-1.04 N = CREAT) CALCIUM (test code = 9.6 MG/DL 8.4-10.2 N CA) [id number] 07:14:00 Test Item Value Reference Range Interpretation Comments MAGNESIUM (test code = MAG) 1.7 MG/DL 1.6-2.3 N PROTHROMBIN [id number] 07:01:00 Test Item Value Reference Range Interpretation Comments PROTHROMBIN TIME 11.4 SECONDS 9.5-12.7 N PATIENT (test code = PTP) INTERNATIONAL NORMAL 1.0 0.86-1.14 N The INR is to be RATIO (test code = used only for INR) monitoring oral anticoagulantth erap y. INDICATION INR VALUE ---- ---- ---- -------1. Prophylaxis, de ep venous thrombos is, including high risk surgery. 2.0 - 3.0 2. Prophylaxis, deep venous thrombosis, hip surgery, treatm ent for deep venous thrombosis or pulmonary prevention of systemic emboli sm in patients wit h valvular heart disease, atrial fibrillation, tissue heart va lve, or acute myocar dial infarction. 2.0 - 3.0 3. Diamond Sizer al prosthesis hear t valves, recurre nt systemic emboli sm. 3.0 - 4.5 PTT [id number] 07:01:00 Test Item Value Reference Range Interpretation Comments PTT ACTIVATED (test code = APTT) 28.7 SECONDS 25.1-36.5 N CBC W/AUTO [id number] 06:51:00 Test Item Value Reference Range Interpretation Comments WHITE BLOOD CELL (test code = 6.4 K/MM3 3.8-9.8 N WBC) RED BLOOD CELL (test code = 4.24 M/MM3 3.58-4.97 N RBC) HEMOGLOBIN (test code = HGB) 14.3 G/DL 11.2-14.9 N HEMATOCRIT (test code = HCT) 43.0 % 33.2-43.5 N MEAN CELL VOLUME (test code = 101 fL 80.7-99.1 H MCV) MEAN CELL HGB (test code = MCH) 33.7 pg 27.0-34.1 N MEAN CELL HGB CONCETRATION 33.3 % 32.2-35.7 N (test code = MCHC) RED CELL DISTRIBUTION WIDTH 12.5 % 12.1-15.2 N (test code = RDW) PLATELET COUNT (test code = 316 K/MM3 129-368 N PLT) MEAN PLATELET VOLUME (test code 9.2 fl 7.4-10.4 N = MPV) NEUTROPHIL % (test code = NT%) 50.1 % 43-75 N IMMATURE GRANULOCYTE % (test 0.3 % 0.0-2.0 N code = IG%) LYMPHOCYTE % (test code = LY%) 33.1 % 14-44 N MONOCYTE % (test code = MO%) 12.4 % 4-13 N EOSINOPHIL % (test code = EO%) 3.6 % 0-6 N BASOPHIL % (test code = BA%) 0.5 % 0-2 N NUCLEATED RBC % (test code = 0.0 % 0-1.0 N NRBC%) NEUTROPHIL # (test code = NT#) 3.23 K/mm3 2.0-7.6 N IMMATURE GRANULOCYTE # (test 0.02 x10 3/uL 0-0.03 N code = IG#) LYMPHOCYTE # (test code = LY#) 2.13 K/mm3 1.0-3.8 N MONOCYTE # (test code = MO#) 0.80 K/mm3 0.1-0.8 N EOSINOPHIL # (test code = EO#) 0.23 K/mm3 0.0-0.2 H BASOPHIL # (test code = BA#) 0.03 K/mm3 0.0-0.2 N NUCLEATED RBC # (test code = 0.00 K/mm3 0.0-0.1 N NRBC#) COVID 19 Asymptomatic IH [id number] 12:08:00 Test Item Value Reference Range Interpretation Comments COVID 19 NEGATIVE Negative "Negative resul ts from Asymptomatic IH AG patients with symptom (test code = onset beyondfiv e days, COVNONPUIAG) should be treat ed as presumptive, andconfirmation with a molecular assay , if necessary forpa tient management may be performed. Nega tive results do notr ule out COVID-19 and sh ould not be used as the sole basisfor treatm ent or patient managem ent decisions, includinginfect ion control decisio ns. Negative result s should beconsidered in the context of a pa tients recent exposure s,history, and the presenc e of clinical signs and symptomsconsist ent with COVID-19.This t est detects both vi able andnon-viable S ARS-CoV and SARS CoV-2. Test performance dep endson the amount of virus (antigen) in the sample." TISSUE [id number] 18:20:00Surgical Pathology Report Case: [id number] Authorizing Provider: Destini Arroyo MD Collected: 07/01/2017 09 Ordering Location: [facility] Endoscopy Received: 07/01/2017 1338 Services Pathologist: Wily Langston MD Specimen: Biopsy, Gastric, gastric bx for erythema GASTRIC BIOPSY- CHRONIC INACTIVE GASTRITIS- NO INTESTINAL METAPLASIA, NO DYSPLASIA AND NO MALIGNANCY IDENTIFIED- NO HELICOBACTERPYLORI ORGANISMS IDENTIFIED ON WARTHIN- STARRY STAIN Signing Pathologist Direct Phone Line: [phone] signed by Wily Nielson MD on 07/02/2017 at 6:20 [id number], [id number] in appetite, erythemaGastric biopsyThe specimen is received [...] on this case and the interpretation is incorporat ed in the diagnostic report above:IMMUNOHISTOCHEMISTRY/SPECIAL STAIN SUMMARY:The results of immunohistochemical studies and/or special stains are as follows:Warthin-Starry stain - No Helicobacter pylori organisms identified
--- NOTE | 2022-07-16 11:29 | RAD REPORT ---
EXAM DESCRIPTION: CT - Head Brain Wo Cont - 07/16/2022 11:14 am CLINICAL HISTORY: pain, trip and fall COMPARISON: No comparisonsNo comparisons TECHNIQUE: Axial 5 mm thick images of the head were obtained without IV contrast. All CT scans are performed using dose optimization technique as appropriate and may include automated exposure control or mA/KV adjustment according to patient size. FINDINGS: No intracranial hemorrhage, mass, edema or shift of mid-line structures. No acute cortical based infarction. No cortical edema or sulcal effacement. Moderate severity atrophy changes are pres ent with ventricles in proportion to the volume loss. No abnormal extra-axial fluid collections. Prom inent chronic ischemic change seen throughout the cerebral white matter. Arterial and physiologic mitchell cifications are present. Mastoid air cells and visualized portions of the paranasal sinuses are clear. No skull fracture seen. Moderate-sized posterior scalp hematoma is present. IMPRESSION: Prominent atrophy and chronic ischemic changes are present with no acute intracranial fi nding identified. Moderate severity posterior scalp hematoma with underlying bone intact.
[2022-07-16] MEDS ORDERED: TETANUS & DIPHTHERIA TOX,ADULT 0.5 ML VIAL ONE (12:13)
--- NOTE | 2022-07-16 12:17 | ER ---
Nurse's Notes [facility] Name: Kennedi Dozier Age: 81 yrs Sex: Female : 1940 Arrival Date: 07/16/2022 Time: 10:21 Bed 23 Private MD: Diagnosis: Abrasion of scalp;Fall on same level, unspecified Presentation: 07/16 10:41 Chief complaint: Patient states: Tripped over dog last night. Hematoma and abrasion to ll1 back of head. No active bleeding, no LOC. Takes Xarelto. Coronavirus screen: Vaccine status: Patient reports receiving the 2nd dose of the covid vaccine. Client denies travel out of the [place] in the last 14 days. At this time, the client does not indicate any symptoms associated with coronavirus-19. Ebola Screen: Patient denies travel to an Ebola-affected area in the 21 days before illness onset. Initial Sepsis Screen: Does the patient meet any 2 criteria? No. Patient's initial sepsis screen is negative. Does the patient have a suspected source of infection? No. Patient's initial sepsis screen is negative. Risk Assessment: Do you want to hurt yourself or someone else? Patient reports no desire to harm self or others. Onset of symptoms was July 15, 2022. 10:41 Method Of Arrival: Ambulatory ll1 10:41 Acuity: JEFF 3 ll1 12:15 Care prior to arrival: None. Mechanism of Injury: Fall. Mechanism of Injury: Fall from ld1 standing position. Trauma event details: Injury occurred in the [facility]. Triage Assessment: 10:43 General: Appears in no apparent distress. Behavior is calm, cooperative, appropriate ll1 for age. Pain: Complains of pain in back of head. Trauma Activation: Stat Physician: ED Physician; Name: ; Notified At: ; Arrived At: Physician: General Surgeon; Name: ; Notified At: ; Arrived At: Physician: Radiology; Name: ; Notified At: ; Arrived At: Physician: Respiratory; Name: ; Notified At: ; Arrived At: Physician: Lab; Name: ; Notified At: ; Arrived At: Historical: - Allergies: 10:42 opiods; ll1 10:42 Hydrocodone-Acetaminophen; ll1 10:42 Tramadol HCl; ll1 - PMHx: 10:42 A fib; Hypertensive disorder; ll1 - PSHx: 10:42 Total abdominal hysterectomy; ll1 - Immunization history:: Client reports receiving the 2nd dose of the Covid vaccine. - Social history:: Smoking status: Patient denies any tobacco usage or history of. - Immunization history: Last tetanus immunization: unknown. Screenin:15 Abuse screen: Denies threats or abuse. Denies injuries from another. Tuberculosis ld1 screening: No symptoms or risk factors identified. 12:18 Nutritional screening: No deficits noted. Fall Risk Fall in past 12 months (25 points). ld1 Primary Survey: 12:15 NO uncontrolled hemorrhage observed. Breathing/Chest: Spontaneous respiratory effort, ld1 equal unlabored respirations, breath sounds clear bilaterally, regular pattern, symmetrical chest rise and fall. Circulation: No external hemorrhage present. Regular and strong central pulse, skin warm/dry/normal color. Disability Client is alert. Exposure/Environment: All clothing and personal items were removed. Forensic evidence collection is not deemed to be indicated at this time. Items placed in patient belonging bag. Reassessment Breathing: Spontaneous respiratory effort, equal unlabored respirations, breath sounds clear bilaterally, regular pattern with symmetrical chest rise and fall. Circulation: No external hemorrhage noted. Regular and strong central pulse, skin warm/dry/normal color. Disability: Alert. Assessment: 12:15 General: Appears in no apparent distress. comfortable, Behavior is calm, cooperative, ld1 appropriate for age. Pain: Complains of pain in scalp Pain does not radiate. Pain currently is 7 out of 10 on a pain scale. Quality of pain is described as throbbing. Neuro: Level of Consciousness is awake, alert, obeys commands, Oriented to person, place, time, situation. EENT: No signs and/or symptoms were reported regarding the EENT system. Cardiovascular: Capillary refill < 3 seconds Patient's skin is warm and dry. Rhythm is sinus rhythm. Respiratory: Airway is patent Respiratory effort is even, unlabored. GI: Abdomen is flat, non-distended. : No signs and/or symptoms were reported regarding the genitourinary system. Derm: No signs and/or symptoms reported regarding the dermatologic system. Musculoskeletal: No signs and/or symptoms reported regarding the musculoskeletal system. Vital Signs: 10:41 BP 188 / 88; Pulse 59; Resp 17; Temp 97.8; Pulse Ox 98% ; Weight 49.9 kg; Height 5 ft. ll1 5 in. (165.10 cm); Pain 2/10; 12:18 BP 176 / 82; Pulse 61; Resp 18; Pulse Ox 99% on R/A; ld1 10:41 Body Mass Index 18.30 (49.90 kg, 165.10 cm) ll1 Coppell Coma Score: 10:43 Eye Response: spontaneous(4). Verbal Response: oriented(5). Motor Response: obeys pm1 commands(6). Total: 15. 12:15 Eye Response: spontaneous(4). Verbal Response: oriented(5). Motor Response: obeys ld1 commands(6). Total: 15. Trauma Score (Adult): 12:15 Eye Response: spontaneous(1); Verbal Response: oriented(1); Motor Response: obeys ld1 commands(2); Systolic BP: > 89 mm Hg(4); Respiratory Rate: 10 to 29 per min(4); Coppell Score: 15; Trauma Score: 12 ED Course: 10:21 Patient arrived in ED. rg4 10:38 Reese Rodriguez NP is PHCP. pm1 10:38 Enio Diggs MD is Attending Physician. pm1 10:42 Triage completed. ll1 10:44 Arm band placed on. ll1 12:15 Myah Tiwari, NAVEEN is Primary Nurse. ld1 12:15 Patient has correct armband on for positive identification. Placed in gown. Bed in low ld1 position. Call light in reach. Side rails up X2. Patient maintains SpO2 saturation greater than 95% on room air. 12:15 No provider procedures requiring assistance completed. Patient maintains SpO2 ld1 saturation greater than 95% on room air. 12:33 Patient did not have IV access during this emergency room visit. ld1 12:34 Thermoregulation: warm blanket given to patient. ld1 Administered Medications: 12:14 Drug: Tetanus-Diphtheria Toxoid Adult 0.5 ml {Career Services Representative: [employer]. Exp: ld1 03/15/2024. Lot #: [id number]. } Route: IM; Site: left deltoid; 12:15 Follow up: Response: No adverse reaction ld1 Medication: 12:18 Vaccine Information Statement (VIS) provided today. Questions and/or concerns ld1 addressed. VIS edition date: July 16, 2022. Intake: 12:15 PO: 150ml; Total: 150ml. ld1 Output: 12:15 Urine: 1ml (Voided); Total: 1ml. ld1 Outcome: 12:16 Discharge ordered by . pm1 12:33 Discharged to home ambulatory, with family. ld1 12:33 Condition: stable 12:33 Discharge instructions given to patient, family, Instructed on discharge instructions, follow up and referral plans. Demonstrated understanding of instructions, follow-up care. 12:34 Patient's length of stay was not longer than 2 hours. ld1 12:34 Patient left the ED. ld1 Signatures: Reese Rodriguez NP AUTOMOTIVE TIRE WORKER pm1 Krystal Mosher rg4 Sully Nava RN RN ll1 Myah Tiwari RN RN ld1
--- NOTE | 2022-07-16 12:17 | EDPHYS ---
Physician Documentation [facility] Name: Kennedi Dozier Age: 81 yrs Sex: Female : 1940 Arrival Date: 07/16/2022 Time: 10:21 Bed 23 Private MD: ED Physician Enio Diggs HPI: 07/16 10:43 This 81 yrs old Female presents to ER via Ambulatory with complaints of Head Injury pm1 Without LOC-Adult. 10:43 The patient or guardian reports abrasion, swelling. The complaints affect the scalp pm1 back of head. Context of injury: The problem was sustained at home, resulted from Tripped over her dog and fell backwards. Onset: The symptoms/episode began/occurred just prior to arrival, today. Associated signs and symptoms: Loss of consciousness: This patient did not experience any loss of consciousness. Pertinent negatives: neck pain. Severity of symptoms: in the emergency department the symptoms have improved. The patient has not experienced similar symptoms in the past. The patient has not recently seen a physician. Historical: - Allergies: 10:42 opiods; ll1 10:42 Hydrocodone-Acetaminophen; ll1 10:42 Tramadol HCl; ll1 - PMHx: 10:42 A fib; Hypertensive disorder; ll1 - PSHx: 10:42 Total abdominal hysterectomy; ll1 - Immunization history:: Client reports receiving the 2nd dose of the Covid vaccine. - Social history:: Smoking status: Patient denies any tobacco usage or history of. - Immunization history: Last tetanus immunization: unknown. ROS: 10:43 Constitutional: Negative for fever, chills, and weight loss, Eyes: Negative for injury, pm1 pain, redness, and discharge, Cardiovascular: Negative for chest pain, palpitations, and edema, Respiratory: Negative for shortness of breath, cough, wheezing, and pleuritic chest pain, Abdomen/GI: Negative for abdominal pain, nausea, vomiting, diarrhea, and constipation, MS/Extremity: Negative for injury and deformity. 10:43 Skin: Positive for abrasion(s), of the scalp. 10:43 Neuro: Positive for headache, Negative for altered mental status, loss of consciousness. 10:43 All other systems are negative. pm1 Exam: 10:43 Constitutional: This is a well developed, well nourished patient who is awake, alert, pm1 and in no acute distress. 10:43 Back: No spinal tenderness. No costovertebral tenderness. Full range of motion. Skin: Warm, dry with normal turgor. Normal color with no rashes, no lesions, and no evidence of cellulitis. MS/ Extremity: Pulses equal, no cyanosis. Neurovascular intact. Full, normal range of motion. 10:43 Head/face: Noted is no obvious of injury or deformity except abrasion(s), that are mild, of the Back of head on scalp, swelling, that is mild, of the Back of head to the scalp. 10:43 Neck: Exam negative for acute changes, External neck: is normal, ROM/movement: no acute changes. 10:43 Cardiovascular: Exam negative for acute changes, Rate: normal, Rhythm: regular, Pulses: no pulse deficits are appreciated. 10:43 Respiratory: Exam negative for acute changes, respiratory distress, shortness of breath. 10:43 Neuro: Exam negative for acute changes, Orientation: is normal, Mentation: is normal, Motor: is normal, moves all fours. Vital Signs: 10:41 BP 188 / 88; Pulse 59; Resp 17; Temp 97.8; Pulse Ox 98% ; Weight 49.9 kg; Height 5 ft. ll1 5 in. (165.10 cm); Pain 2/10; 12:18 BP 176 / 82; Pulse 61; Resp 18; Pulse Ox 99% on R/A; ld1 10:41 Body Mass Index 18.30 (49.90 kg, 165.10 cm) ll1 Parks Coma Score: 10:43 Eye Response: spontaneous(4). Verbal Response: oriented(5). Motor Response: obeys pm1 commands(6). Total: 15. 12:15 Eye Response: spontaneous(4). Verbal Response: oriented(5). Motor Response: obeys ld1 commands(6). Total: 15. Trauma Score (Adult): 12:15 Eye Response: spontaneous(1); Verbal Response: oriented(1); Motor Response: obeys ld1 commands(2); Systolic BP: > 89 mm Hg(4); Respiratory Rate: 10 to 29 per min(4); Hilton Score: 15; Trauma Score: 12 MDM: 10:38 Patient medically screened. pm1 12:14 Data reviewed: vital signs. Data interpreted: Pulse oximetry: on room air is 98 %. pm1 Interpretation: normal. Counseling: I had a detailed discussion with the patient and/or guardian regarding: the historical points, exam findings, and any diagnostic results supporting the discharge/admit diagnosis, radiology results, the need for outpatient follow up, to return to the emergency department if symptoms worsen or persist or if there are any questions or concerns that arise at home. 07/16 11:30 Order name: CT; Complete Time: 11:35 EDMS Administered Medications: 12:14 Drug: Tetanus-Diphtheria Toxoid Adult 0.5 ml {Program Director [employer]: [employer]. Exp: ld1 03/15/2024. Lot #: [id number]. } Route: IM; Site: left deltoid; 12:15 Follow up: Response: No adverse reaction ld1 Disposition: 16:12 Co-signature as Attending Physician, Enio Diggs MD. rn Disposition Summary: 07/16/22 12:16 Discharge Ordered Location: Home pm1 Problem: new pm1 Symptoms: have improved pm1 Condition: Stable pm1 Diagnosis - Abrasion of scalp pm1 - Fall on same level, unspecified pm1 Followup: pm1 - With: Emergency Department - When: As needed - Reason: Worsening of condition Followup: pm1 - With: Private Physician - When: 2 - 3 days - Reason: Recheck today's complaints, Continuance of care, Re-evaluation by your physician Discharge Instructions: - Discharge Summary Sheet pm1 - Abrasion pm1 - Head Injury, Adult pm1 Forms: - Medication Reconciliation Form pm1 - Thank You Letter pm1 - Antibiotic Education pm1 - Prescription Opioid Use pm1 Signatures: Enio Diggs MD MD rn Marinas, Patrick, NP TUBE HANDLER pm1 Sully Nava RN RN ll1 Myah Tiwari RN RN ld1
[2022-07-16 13:27] VITALS: TEMP 97.8
[2022-07-16 13:30] VITALS: BP 176/82; O2SAT 99
== END 2022-07-16 12:34 | disposition home or self-care (01) ==
LOC: ER 10:18
DX: S00.01XA Abrasion of scalp, initial encounter (principal); W18.30XA Fall on same level, unspecified, initial encounter; I10 Essential (primary) hypertension; Z23 Encounter for immunization; Z88.5 Allergy status to narcotic agent
CPT/HCPCS: 70450; 90471; 90714; 99284; G0390

== ENCOUNTER 2024-05-15 08:32 | Emergency (ER) | payer OTHER ==
--- NOTE | 2024-05-15 09:21 | ER ---
Nurse's Notes [facility] Name: Kennedi Dozier Age: 83 yrs Sex: Female : 1940 Arrival Date: 05/15/2024 Time: 08:32 Bed 5 Private MD: Diagnosis: Left forearm skin avulsion Presentation: 05/15 08:52 Chief complaint: Left forearm laceration from mechanical fall from standing yesterday. hb Takes Xarelto. Coronavirus screen: At this time, the client does not indicate any symptoms associated with coronavirus-19. Ebola Screen: No symptoms or risks identified at this time. Initial Sepsis Screen: Does the patient meet any 2 criteria? No. Patient's initial sepsis screen is negative. Does the patient have a suspected source of infection? No. Patient's initial sepsis screen is negative. Risk Assessment: Do you want to hurt yourself or someone else? Patient reports no desire to harm self or others. Onset of symptoms was May 14, 2024. 08:52 Method Of Arrival: Ambulatory hb 08:52 Acuity: JEFF 4 hb Historical: - Allergies: 08:53 Hydrocodone-Acetaminophen; hb 08:53 Opiods; hb 08:53 Tramadol HCl; hb - Home Meds: 08:53 Xarelto oral [Active]; hb - PMHx: 08:53 a fib; Hypertensive disorder; hb - PSHx: 08:53 Total abdominal hysterectomy; hb - Immunization history:: Adult Immunizations up to date. - Infectious Disease History:: Denies. - Social history:: Smoking status: Patient denies any tobacco usage or history of. - Family history:: not pertinent. - Hospitalizations: : No recent hospitalization is reported. Screenin:01 [facility] ED Fall Risk Assessment (Adult) History of falling in the last 3 months, kc6 including since admission Yes- single mechanical fall (1 pt) Confusion or Disorientation No (0 pts) Intoxicated or Sedated No (0 pts) Impaired Gait No (0 pts) Mobility Assist Device Used No (0 pt) Altered Elimination No (0 pt) Score/Fall Risk Level 0 - 2 = Low Risk. Abuse screen: Denies threats or abuse. Denies injuries from another. Nutritional screening: No deficits noted. Tuberculosis screening: No symptoms or risk factors identified. Assessment: 09:03 General: Appears in no apparent distress. comfortable, well groomed, well developed, kc6 Behavior is calm, cooperative, appropriate for age. Pain: Complains of pain in left elbow. Neuro: Level of Consciousness is awake, alert, obeys commands, Oriented to person, place, time, situation, Appropriate for age. Cardiovascular: Capillary refill < 3 seconds. Respiratory: Airway is patent Trachea midline Respiratory effort is even, unlabored, Respiratory pattern is regular, symmetrical. GI: No signs and/or symptoms were reported involving the gastrointestinal system. : No signs and/or symptoms were reported regarding the genitourinary system. EENT: No signs and/or symptoms were reported regarding the EENT system. Derm: Skin is fragile, is thin, has skin tears on to the left elbow Skin is pink, warm \T\ dry. Musculoskeletal: No signs and/or symptoms reported regarding the musculoskeletal system. Circulation, motion, and sensation intact. Capillary refill < 3 seconds, Range of motion: intact in all extremities. Vital Signs: 08:52 BP 167 / 82; Pulse 79; Resp 16; Temp 97.7; Pulse Ox 97% on R/A; Pain 6/10; hb 08:52 Pain Scale: Adult hb ED Course: 08:36 Patient arrived in ED. mg5 08:36 Enio Diggs MD is Attending Physician. rn 08:53 Triage completed. hb 08:54 Arm band placed on. hb 09:00 Emilia Kaur, RN is Primary Nurse. kc6 09:01 Patient has correct armband on for positive identification. Bed in low position. Call kc6 light in reach. Side rails up X 1. Adult w/ patient. Pulse ox on. NIBP on. Pillow given. 09:05 Wound care: to laceration located on left elbow was dressed with 4X4s, Patient kc6 tolerated well. 09:43 No provider procedures requiring assistance completed. Patient did not have IV access kc6 during this emergency room visit. Administered Medications: No medications were administered Medication: 09:43 VIS not applicable for this client. kc6 Outcome: 09:20 Discharge ordered by . rn 09:43 Discharged to home ambulatory, with significant other, [facility] 09:43 Condition: good 09:43 Discharge instructions given to patient, significant other, Instructed on discharge instructions, follow up and referral plans. Demonstrated understanding of instructions, follow-up care, wound care, 09:43 Patient left the ED. kc6 Signatures: Enio Diggs MD MD rn Baxter, Heather, RN RN hb Campbell, Kaitlyn, RN RN kc6 [facility] [place]
--- NOTE | 2024-05-15 09:21 | EDPHYS ---
Physician Documentation [facility] Name: Kennedi Dozier Age: 83 yrs Sex: Female : 1940 Arrival Date: 05/15/2024 Time: 08:32 Bed 5 Private MD: ED Physician Enio Diggs HPI: 05/15 09:11 This 83 yrs old Female presents to ER via Ambulatory with complaints of Fall Injury, rn Laceration To Arm - Blood Thinners. 09:11 Details of fall: The patient fell from an upright position, while walking. Onset: The rn symptoms/episode began/occurred last night. Associated injuries: The patient sustained Left forearm. Severity of symptoms: At their worst the symptoms were mild, in the emergency department the symptoms are unchanged. The patient has not experienced similar symptoms in the past. The patient has not recently seen a physician. Patient reports fall from standing last night, hit arm on the counter and scraped the top layer of her skin off. Patient on Xarelto for A-fib. No other injury. Denies head injury or loss of consciousness. Arm does not feel broken, arm was dressed last night and has slowed down bleeding but still bleeding a little bit. No shortness of breath or lightheadedness.. Historical: - Allergies: 08:53 Hydrocodone-Acetaminophen; hb 08:53 Opiods; hb 08:53 Tramadol HCl; hb - Home Meds: 08:53 Xarelto oral [Active]; hb - PMHx: 08:53 a fib; Hypertensive disorder; hb - PSHx: 08:53 Total abdominal hysterectomy; hb - Immunization history:: Adult Immunizations up to date. - Infectious Disease History:: Denies. - Social history:: Smoking status: Patient denies any tobacco usage or history of. - Family history:: not pertinent. - Hospitalizations: : No recent hospitalization is reported. ROS: 09:11 Constitutional: Negative for fever, chills, and weight loss, Neck: Negative for injury, rn pain, and swelling, Cardiovascular: Negative for chest pain, palpitations, and edema, Respiratory: Negative for shortness of breath, cough, wheezing, and pleuritic chest pain, Abdomen/GI: Negative for abdominal pain, nausea, vomiting, diarrhea, and constipation, Back: Negative for injury and pain, MS/Extremity: Positive for skin avulsion to the left forearm Neuro: Negative for headache, weakness, numbness, tingling, and seizure, Exam: 09:11 Constitutional: This is a well developed, well nourished patient who is awake, alert, rn and in no acute distress. Ambulatory to room without difficulty or assistance Head/Face: Normocephalic, atraumatic. Cardiovascular: Regular rate and rhythm. No pulse deficits. Respiratory: No increased work of breathing, no retractions or nasal flaring. MS/ Extremity: Pulses equal, no cyanosis. Neurovascular intact. Full, normal range of motion. Equal circumference. 2 inches x 3 inches superficial skin avulsion of the dorsum of the proximal left forearm. Very small areas of venous bleeding. No arterial bleeding. Fascia of muscle not violated. Neuro: Awake and alert, GCS 15, oriented to person, place, time, and situation. Cerebellar exam normal. Normal gait. Vital Signs: 08:52 BP 167 / 82; Pulse 79; Resp 16; Temp 97.7; Pulse Ox 97% on R/A; Pain 6/10; hb 08:52 Pain Scale: Adult hb MDM: 08:36 Patient medically screened. rn 09:17 Differential diagnosis: abrasion, contusion, Skin avulsion. Data reviewed: vital signs, rn nurses notes, and as a result, I will discharge patient. Counseling: I had a detailed discussion with the patient and/or guardian regarding the historical points, exam findings, and any diagnostic results supporting the discharge/admit diagnosis, the need for outpatient follow up, to return to the emergency department if symptoms worsen or persist or if there are any questions or concerns that arise at home. Special discussion: I discussed with the patient/guardian in detail that at this point there is no indication for admission to the hospital. It is understood, however, that if the symptoms persist or worsen the patient needs to return immediately for re-evaluation. ED course: Wound explored, complete avulsion of the epidermis. Wound not amenable to sutures. Surgicel applied and wound redressed. Bleeding controlled.. Administered Medications: No medications were administered Disposition Summary: 05/15/24 09:20 Discharge Ordered Notes: Location: Home rn Problem: new rn Symptoms: have improved rn Condition: Stable rn Diagnosis - Left forearm skin avulsion rn Followup: rn - With: Private Physician - When: As needed - Reason: Recheck today's complaints, Re-evaluation by your physician Discharge Instructions: - Discharge Summary Sheet rn - Deep Skin Avulsion rn - Wound Care, Adult rn - Uncontrolled Wound Bleeding rn Forms: - Medication Reconciliation Form rn - Antibiotic managing attorney - Prescription Opioid Use rn - Patient Portal Instructions rn - Leadership Thank You Letter rn Prescriptions: - Cephalexin 500 mg Oral Capsule - take 1 capsule ORAL route every 12 hours for 10 days; 20 capsule; Refills: 0, rn Product Selection Permitted Signatures: Enio Diggs MD MD rn Baxter, Heather, RN RN hb Campbell, Kaitlyn RN RN kc6
[2024-05-15 09:57] VITALS: BP 167/82; TEMP 97.7; O2SAT 97
== END 2024-05-15 09:43 | disposition home or self-care (01) ==
LOC: ER 08:32
DX: S51.812A Laceration without foreign body of left forearm, initial encounter (principal); I10 Essential (primary) hypertension; I48.91 Unspecified atrial fibrillation; Z79.01 Long term (current) use of anticoagulants; W18.30XA Fall on same level, unspecified, initial encounter
CPT/HCPCS: 99283

== ENCOUNTER 2025-02-22 18:23 | Inpatient (IN) | payer OTHER ==
[2025-02-22] MEDS ORDERED: SODIUM CHLORIDE 0.9% 10ML INJ IV PRN (18:59)
[2025-02-22] MEDS: D5 0.9 NS 1,000 ML IV SCH (19:00)
--- NOTE | 2025-02-22 19:14 | RAD REPORT ---
EXAMINATION: ONE VIEW CHEST XR CLINICAL INDICATION: abd pain, nausea, vomiting TECHNIQUE: Frontal chest projection is submitted. Examination is limited by patient positioning and t echnique. COMPARISON: 11/12/2023 FINDINGS: The lungs are diffusely emphysematous but grossly clear. The heart is upper limit of normal in size. No displaced fractures identified. Dual-lead pacer device. IMPRESSION: COPD without an acute process suspected.
--- NOTE | 2025-02-22 19:20 | RAD REPORT ---
EXAM: Right upper quadrant ultrasound. CLINICAL HISTORY: abd pain COMPARISON: None. FINDINGS: Gallbladder: Multiple stones. Bile ducts: No intrahepatic or extrahepatic biliary dilatation. Common bile duct measures 6 mm. Limited imaging of the liver shows no concerning finding. Normal right kidney. IMPRESSION: Cholelithiasis. Upper limit of normal common duct measuring 6 mm.
[2025-02-22] MEDS: ONDANSETRON 4 MG/2 ML VIAL IV PRN (19:33)
[2025-02-22] MEDS: Levofloxacin500mg IV 500 MG/100 ML BAG IV ONE (20:09)
[2025-02-22] MEDS: PANTOPRAZOLE 40 MG INJ IVP ONE (20:09)
[2025-02-22 20:41] LABS: Specific Gravity 1.008 (1.005-1.030); Urine Bilirubin NEGATIVE (Negative); Urine Blood Negative (Negative); Urine Clarity Clear (Clear); Urine Color Colorless (Yellow); Urine Glucose NEGATIVE (Negative); Urine Ketones 1+ (Negative); Urine Microscopic Reflex YN NO UMIC; Urine Nitrite NEGATIVE (Negative); Urine Protein NEGATIVE (Negative); Urine Urobilinogen Normal (Normal)
[2025-02-22 20:48] LABS: Absolute Eosinophils 0.1 K/uL (0-0.5); Absolute Lymphocytes (CBC) 1.3 K/uL (0.7-4.9); Absolute Monocytes 1.2 K/uL (0.1-1.3); Absolute Neutrophil 11.9 K/uL (1.8-8.0); Basophils % 0.1 % (0-1.3); Eosinophils % 0.4 % (0-4.4); Hematocrit 41.5 % (36.0-45.0); Hemoglobin 14.7 g/dL (12.0-15.0); MCH 33.1 pg (27.0-35.0); MCHC 35.3 g/dL (32.0-36.0); MCV 93.7 fL (80-100); MPV 7.5 fL (7.6-11.3); Monocytes % 8.3 % (3.3-12.3); Neutrophils % 82.2 % (41.7-73.7); Platelets 349 thou/uL (152-406); RBC Red Blood Cell Count 4.43 M/uL (3.86-4.86); Red Cell Distribution Width 14.3 % (12.1-15.2)
[2025-02-22 20:56] VITALS: BMI 18.4
[2025-02-22 21:13] LABS: Albumin 3.8 g/dL (3.4-5.0); Bilirubin Total 2.6 mg/dL (0.2-1.0); Globulin 3.7 g/dL (2.3-3.5); Magnesium 1.9 mg/dL (1.6-2.4); Protein, Total 7.5 g/dL (6.4-8.2)
[2025-02-22] MEDS: KCL 20 MEQ/100 mL IVPB 20 MEQ/100 ML BAG IV SCH (22:00)
--- NOTE | 2025-02-22 22:36 | HP ---
Date of Admission: 02/22/2025 Chief Complaint: Abdominal pain, nausea, vomiting. History Of Present Illness: This is an 84-year-old pleasant female patient, who woke up this morning with complaints of nausea, vomiting, and upper abdominal discomfort. Denies any fever, chills. No constipation. No diarrhea. No fall. No injury. The patient vomited about 3 times today and has constant nausea all day. She has not had anything to eat or drink all day today. She was brought into office by her and after I evaluated, decision was made to admit her to hospital. Allergies: TO HYDROCODONE CAUSING HALLUCINATIONS. Medications: Atorvastatin 40 mg daily, buspirone 10 mg 3 times a day, Caltrate plus D 1 tablet 2 times a day, duloxetine 60 mg daily, Tawnya 180 mg daily as needed for allergies, furosemide 20 mg daily, methocarbamol 500 mg 2 times a day as needed, Xarelto 15 mg daily with evening meal. Review of Systems: GI: As mentioned above. All other systems reviewed and negative. Past Medical History: Significant for allergic rhinitis, COPD, hypertension, hyperlipidemia, paroxysmal atrial fibrillation, AV block, peripheral vascular disease, diverticulosis, anxiety, depression, osteoporosis, and prior history of gallstones. 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 Family History: Father , details unknown. Mother , had liver cancer. Brother , had lung cancer. Social History: Prior history of smoking, not at present time. Use of alcohol, significant for use of beer. Physical Examination: Vital Signs: Blood pressure 189/84, pulse 61, temperature 97.5, respiratory rate 18, weight 111.2 pounds, height 64 inches. General: The patient appeared to be ill, not in any distress, was not comfortable at all due to constant nausea. HEENT: Head atraumatic, normocephalic. Conjunctivae nonerythematous. Sclerae white. Mouth, no thrush or edema noted. Ears/Nose, no mass, lesion, discharge noted. Neck: Supple. No JVD, lymph nodes, bruit, thyromegaly noted. Lungs: Bilateral good equal air entry. Clear to auscultation. No rhonchi. No rales. Heart: Normal heart sounds, no murmur or gallop. Abdomen: The patient has tenderness in upper half of the abdomen. No rebound tenderness. No distention. Bowel sounds normal. Extremities: No leg edema. No calf tenderness. Skin: No rash, ulcer, cellulitis. Lymphatics: No lymph node enlargement in neck, supraclavicular, infraclavicular region. Neuro: No focal neurological deficit. Chest: Unremarkable. External Genitalia: Deferred. Rectal: Deferred. Laboratory Data: WBC 14.5, hemoglobin 14.7, platelets 349. Sodium 134, potassium 3, chloride 98, bicarb 29, BUN 14, creatinine 0.70, glucose 147. Lactic acid 1.1. Liver function tests unremarkable except total bilirubin 2.6, lipase 27. Chest x-ray shows changes of COPD otherwise no other acute intrathoracic changes. CAT scan of the abdomen and pelvis shows no acute abnormality, but presence of gallstones, diverticulosis, and possible small nonobstructing kidney stones and abdominal ultrasound shows presence of gallstones with upper limit of common bile duct size measuring 6 mm in size Impression: 1. Abdominal pain. 2. Nausea with vomiting. 3. Gallstones. 4. Hypertension. 5. Hyperlipidemia. 6. Paroxysmal atrial fibrillation. 7. Peripheral vascular disease. 8. Diverticulosis. 9. Anxiety. 10. Depression. 11. Osteoporosis. 12. COPD. 13. Allergic rhinitis. Plan: We will go ahead and admit the patient to hospital for further evaluation and management of this problem. The patient is appropriate for inpatient and is expected to spend 2 midnights in hospital. We will keep her n.p.o. right now and start her on IV fluid. Workup for abdominal pain, nausea, vomiting was ordered in form of abdominal ultrasound and CAT scan. The patient has history of gallstones, so my immediate concern is acute cholecystitis or symptomatic gallstone problem right now, which may require surgical intervention. I have discussed all the details with her and her . We will follow up on ultrasound and CAT scan results and then decide if surgical intervention is needed or not. We will start empiric antibiotics using Levaquin. Give pain medication and nausea medication per order. For hyperlipidemia, we will continue statin therapy per order. No need for further intervention. For anxiety and depression, she is on buspirone and duloxetine and we will start that starting tomorrow. For atrial fibrillation, she is on Xarelto, which obviously we will not continue at this time in case if she needs any surgical intervention. For hypertension, I have started her on metoprolol 25 mg twice a day. I will monitor her blood pressure. If necessary, adjust medication. Total time spent today 80 minutes including evaluation and management for today's admission, making arrangements for hospital admission, review of prior office visit record. The patient had abdominal ultrasound done on June 06, 2021, showing gallstones. All the details and plan of treatment discussed with the patient and the patient's . We will also start her on pantoprazole 40 mg IV daily. I will see her tomorrow for followup. ANTONIETA/BRITNEY Voice ID: [id number] MTDD
[2025-02-22] MEDS: METOPROLOL TAR 25 MG TAB PO SCH (23:05)
[2025-02-22] MEDS: BUSPIRONE HCL 5 MG TABLET PO SCH (23:05)
[2025-02-22] MEDS: ATORVASTATIN 40 MG TAB PO SCH (23:06)
--- NOTE | 2025-02-23 01:28 | RAD REPORT ---
Clinical Indication: use oral contrast. Abdominal pain Comparison: None. TECHNIQUE: Helical imaging was performed from diaphragm through the pelvis after IV contrast administ ration with multiplanar reformations obtained. Coronal and sagittal reformats were performed and provided as separate series. IV CONTRAST: IV contrast dose was not provided GI CONTRAST: GI contrast was administered CT Radiation Dose: DLP = 482 mGy-cm All CT scans at this location are performed using dose optimization techniques as appropriate to perf orm the study. Radiation dose reduction technique was utilized including one or more of the following: Automated exp osure control, adjustment of the mA and/or kV according to patient size and use of iterative reconstruction technique. FINDINGS: LOWER CHEST: The visualized lung bases are clear. LIVER: Unremarkable. GALLBLADDER: Small calcified gallstone is noted in the dependent neck. No surrounding inflammatory ch anges are noted. INTRAHEPATIC BILE DUCT AND EXTRAHEPATIC BILE DUCT: Unremarkable. PANCREAS: Unremarkable. SPLEEN: Unremarkable. ADRENALS: Unremarkable. KIDNEYS AND URETERS: The renal contours are normal. There is no hydronephrosis. No calcified koutrney l stones are noted. No surrounding fat stranding is noted. Evaluation for calcified stones is limited due to IV contrast and vascular calcifications. Possible left 2 mm mid kidney calyceal stone is noted on image 31 of series 201. STOMACH: Evaluation of the stomach and bowel is limited due to lack of oral contrast. No gross abno rmalities of the stomach are noted. BOWEL: The small bowel loops in the abdomen and pelvis appear unremarkable. The colonic loops in the abdomen and pelvis appear unremarkable. A few scattered diverticuli are noted throughout the colon. No surrounding inflammatory changes are seen to suggest acute diverticulitis. APPENDIX: Not well seen on the exam. PERITONEUM AND RETROPERITONEUM: No ascites or free air. No loculated fluid collection is noted. The re is no aortic aneurysm or dissection. PELVIS: The patient is status post hysterectomy. BLADDER: Unremarkable LYMPH NODES: Unremarkable. OSSEOUS STRUCTURES: No acute abnormality seen. Wedge compression deformity along the superior endplat e is noted in T11. The endplate is well corticated and likely chronic. The bony structures are osteopenic in appearance. SOFT TISSUES: Unremarkable. IMPRESSION: 1. No acute abnormality of the abdomen or pelvis is noted. 2. Cholelithiasis without CT evidence of acute cholecystitis. 3. Diverticulosis without CT evidence of acute diverticulitis. 4. Possible small nonobstructing renal calyceal stones. Electronically signed by: Memo Galvan MD 02/23/2025 01:09 AM CDT RP Due to temporary technical issues with the PACS/[employer] reporting system, reports are being onur d by the in-house radiologist without review as a courtesy to ensure prompt reporting the interpreting radiologist is fully responsible for the content of the report. Transcribed Date/Time: 02/23/2025 1:28 AM
[2025-02-23] MEDS: DULOXETINE 30 MG CAP PO SCH (09:24)
--- NOTE | 2025-02-23 14:41 | RAD REPORT ---
EXAMINATION: Hepatobiliary System W/ Ph CLINICAL INDICATION: abd pain, gallstones TECHNIQUE: 5.8 mCi technetium Choletec administered intravenously. Images of the abdomen obtained for 54 minutes. 1 mcg contact administered intravenously and images ob tained for 30 minutes. FINDINGS: There is prompt accumulation of the radiopharmaceutical in the liver and excretion into the biliary d uctal system, gallbladder, and small bowel. Gallbladder ejection fraction was calculated at 61% (normal range >35%). Patient was asymptomatic prior and during the administration of CCK. IMPRESSION: No evidence of acute cholecystitis Normal gallbladder contraction
--- NOTE | 2025-02-23 16:22 | P.CNS ---
Date of Consult: 02/23/25 Reason for consult: Abdominal pain, nausea and vomiting History of present illness: Patient is a 84-year-old female who was admitted fr om Dr. Gannon's office after she presented him with nausea vomiting and upper abdominal discomfort. Patient vomited several times and had consistent nausea all day long prior to admission. Patient does not need anything during this time. Patient denies any sore throat, runny nose, headaches, dizziness, chest pain, fever or chills. Patient has a known history of gallbladder stones. Review of systems: Otherwise unremarkable Past medical history: COPD, hypertension, hyperlipidemia, A-fib, peripheral vascular disease, diverticulosis, anxiety, depression and history of gallstones Past surgical history: Cataract surgery, cardiac ablation, pacemaker placement, appendectomy, partial resection of colon for diverticulitis, hysterectomy, skin cancer removal from the face Allergies: Hydrocodone and tramadol Social history: Patient does not smoke, was a previous smoker. Patient does like to drink beer once in a while Family history: Mother had liver cancer and brother has lung cancer Vital signs: Stable, afebrile Physical exam: Awake, alert and oriented x 3 Head and neck exam: No neck masses, no JVD, throat clear, neck supple and no evidence of icterus Chest: Clear Heart: S1-S2 Abdomen: Soft, nondistended, positive bowel sounds, minimal tenderness in the right upper quadrant Extremity: Neurovascular intact Neuro: Nonfocal Diagnostic data: White count 14.5 with left shift, potassium is 3.0 and is being replaced, LFTs are essentially within normal limits total bili is elevated at 2.6. Ultrasound and CAT scan reviewedthere is a gallstone in the neck of the gallbladder bladder and HIDA scan is within normal limit Assessment: Acute and chronic cholecystitis and cholelithiasis Plan/recommendation: Admit, n.p.o., IV fluids, IV antibiotics and to the OR for laparoscopic cholecystectomy possible open. Patient and understand risk, benefits and alternatives and agreed to procedure. Plan of care discussed in detail with Dr. Gannon. CC:
[2025-02-23] MEDS ORDERED: Levofloxacin 250mg IV 250 MG/50 ML BAG IV SCH (20:00)
[2025-02-23] MEDS: Levofloxacin500mg IV 500 MG/100 ML BAG IV SCH (20:39)
--- NOTE | 2025-02-24 05:57 | PN ---
Date of Progress Note: 02/23/2025 Subjective: The patient was seen this morning for followup, she was lying in bed, not in distress. Overall, feeling a lot better compared to yesterday. Denies any abdominal pain. No nausea, no vomit ing. Objective: Vital Signs: Reviewed. HEENT: Unremarkable. Lungs: Clear to auscultation. Heart: Sounds normal. Abdomen: Soft. Mild tenderness in epigastric and right upper quadrant area. No rebound tenderness. Abdomen is not distended. Bowel sounds normoactive. Extremities: No leg edema. Laboratory Data: Reviewed. HIDA scan done today, results reviewed. Impression: 1. Gallstone with acute cholecystitis. 2. Hypertension. 3. Chronic anticoagulation therapy. 4. Anxiety. Plan: The patient's condition has improved since her admission. She is on Levaquin, which she will continue that. General surgeon, Dr. Dykes, was consulted and I did communicate details with him. Th is morning when the consult was requested and after he evaluated and after HIDA scan was done, we als o communicated second time. His plan is to take the patient to surgery tomorrow for laparoscopic cho lecystectomy. The patient had her last dose of Xarelto Friday evening so as of this evening last dos e of Xarelto was 48 hours ago and she will be ready for surgery for tomorrow morning. Continue curre nt antihypertensive medication. Recently, few days ago, she was started on sotalol by her cardiologi st for her atrial fibrillation, which I have not given her during this hospitalization because of int eraction with the Levaquin and I did communicate with the patient's daughter this morning and informe d her that she should restart her sotalol after she completes her Levaquin. Meanwhile, we will ofelia nue metoprolol as I have ordered here in the hospital. I will see her tomorrow for followup. ANTONIETA/MODL Voice ID: [id number] Report ID: [id number]
[2025-02-24 06:27] LABS: Absolute Eosinophils 0.1 K/uL (0-0.5); Absolute Lymphocytes (CBC) 1.9 K/uL (0.7-4.9); Absolute Monocytes 1.1 K/uL (0.1-1.3); Absolute Neutrophil 7.8 K/uL (1.8-8.0); Basophils % 0.2 % (0-1.3); Eosinophils % 0.6 % (0-4.4); Hemoglobin 13.9 g/dL (12.0-15.0); Lymphocytes % 17.2 % (15.3-44.8); MCH 32.8 pg (27.0-35.0); MCHC 34.9 g/dL (32.0-36.0); MPV 7.4 fL (7.6-11.3); Monocytes % 10.3 % (3.3-12.3); Neutrophils % 71.7 % (41.7-73.7); Platelets 333 thou/uL (152-406); RBC Red Blood Cell Count 4.25 M/uL (3.86-4.86); Red Cell Distribution Width 14.5 % (12.1-15.2)
[2025-02-24 06:42] LABS: Anion Gap 9.5 mEq/L (5.0-15.0); Potassium 4.5 mEq/L (3.5-5.1)
[2025-02-24] MEDS: Ringers Lactate 1,000 ML IV ONE (06:54)
[2025-02-24] MEDS ORDERED: ONDANSETRON 4 MG/2 ML VIAL ONE (07:00)
[2025-02-24] MEDS ORDERED: FENTANYL CITR 100 MCG/2 ML ONE (07:00)
[2025-02-24] MEDS ORDERED: propofoL 200 MG/20 ML VIAL IV ONE (07:00)
[2025-02-24] MEDS ORDERED: MIDAZOLAM HCL 2 MG/2 ML INJ ONE (07:00)
[2025-02-24] MEDS ORDERED: ROCURONIUM 50 MG/5 ML VIAL IV ONE (07:04)
[2025-02-24] MEDS: CEFOXITIN SODIUM 1 GM/VIAL ONE (07:16)
[2025-02-24] MEDS: METOPROLOL TARTRATE 5 MG/5 ML INJ IV ONE ×2 (07:22→08:05)
[2025-02-24] MEDS ORDERED: EPHEDRINE SULF 50 MG/ML VIAL ONE (07:32)
[2025-02-24] MEDS ORDERED: Mastisol Adhesive Liq ONE (08:27)
[2025-02-24] MEDS: SUGAMMADEX SODIUM 200 MG/2 ML VIAL IV ONE (08:33)
--- NOTE | 2025-02-24 08:34 | P.OP ---
Date of Service: 02/24/25 Preop diagnosis: Acute cholecystitis and cholelithiasis Postop diagnosis: Same Procedure performed: Laparoscopic cholecystectomy Surgeon: Leo Dykes MD Supportability Engineer: None Estimated blood loss: Minimal Specimen: Gallbladder Findings: As above Anesthesia: General Complications: None Drains: None Fluids and blood products: Nonapplicable Disposition: Recovery room Operative note: Patient brought to the OR and placed in supine position. General anesthesia began. Patient prepped and draped in the usual sterile fashion. Marcaine 0.5% infiltrated locally for postop pain control. 15 blade used to make a 1 cm supraumbilical midline incision. Subcutaneous tissue divided and bleeding controlled with cautery. Fascia identified and divided. #1 Vicryl stay suture placed. Peritoneal cavity entered with sharp and blunt dissection. 12 mm trocar placed into the peritoneal cavity under direct vision. Pneumoperitoneum established. Three 5 mm trocar placed under direct vision. 1 trocar placed in the right epigastric region just to the right of midline and 2 trocars placed in the right upper quadrant. Laparoscopy revealed acute inflammation of the gallbladder with a few adhesions from the omentum on the body of the gallbladder. The adhesions were taken down with LigaSure. Fundus identified and retracted superiorly. Infundibulum identified and retracted inferolaterally. Cystic duct and cystic artery were clearly identified with blunt dissection. Clips placed and both structures divided. Cautery used to re move the gallbladder from the liver bed. Bleeding in the liver bed controlled with cautery. Gallbladder retrieved through the umbilicus via Endo Catch bag. Right upper quadrant irrigated. Effluent clear and no evidence of bleeding seen. All trocars removed under direct vision. Stay sutures tied to each other to reapproximate the fascial defect. Subcutaneous wound irrigated and bleeding controlled with cautery. 3-0 chromic used to approximate subcutaneous tissue and close skin. Sterile dressing applied. Patient awakened and taken to recovery room in good general condition. CC: Dr. Gannon's office
[2025-02-24] MEDS: HYDROMORPHONE HCL 1 MG/ML INJ ONE ×3 (08:59→09:21)
[2025-02-24] MEDS: NA CHLORIDE 0.9% 250 ML IV PRN (10:19)
[2025-02-24] MEDS: DIGOXIN 0.25 MG/ML AMP IV ONE (10:19)
[2025-02-24] MEDS: TRAMADOL 37.5mg/APAP 325mg PER TAB PO PRN (17:27)
[2025-02-24] MEDS: METOPROLOL TAR 50 MG TAB PO SCH (20:47)
[2025-02-24] MEDS: DIGOXIN 0.25 MG/ML AMP IV SCH (20:48)
[2025-02-24] MEDS: HYDROMORPHONE HCL 1 MG/ML INJ IV PRN (20:54)
[2025-02-24] MEDS: AMIODARONE HCL 150 MG/3 ML INJ IV ONE (22:32)
[2025-02-24] MEDS: D5W 100 ML IV ONE (22:34)
[2025-02-24] MEDS: AMIODARONE HCL 150 MG in D5W 100 ML IV STA (22:50)
[2025-02-24] MEDS ORDERED: AMIODARONE HCL 450 MG in D5W 241 ML IV SCH (23:00)
[2025-02-24] MEDS: AMIODARONE IN DEXTROSE,ISO-OSM 360 MG/200 ML BAG IV ONE (23:02)
--- NOTE | 2025-02-24 23:13 | PN ---
Date of Progress Note: 02/24/2025 Subjective: The patient was seen this morning for followup. She was lying in bed, not in distress. No new complaints or problems reported. Objective: Vital Signs: Reviewed. HEENT: Unremarkable. Lungs: Clear to auscultation. Heart: Sounds normal. Abdomen: Soft. Bowel sounds normal. No guarding, rigidity. Mild tenderness in epigastric and righ t upper quadrant. No rebound tenderness. Extremities: No leg edema. Impression: 1. Gallstone with acute cholecystitis. 2. Atrial fibrillation. 3. Hypertension. Plan: After I saw her, the patient was taken down for gallbladder surgery, and after she came back t o the room, nurse contacted me, informed me that the patient's systolic blood pressure was around 100 , and this was checked with manual blood pressure. Heart rate was around 120. At that time, order w as given to place on telemetry unit and digoxin 0.25 mg IV x1 dose was ordered and 250 cc of IV fluid normal saline bolus was ordered. After this treatment provided, her systolic blood pressure came ba ck up to around 120 range, pulse rate came down to 80 range. Second dose of digoxin was ordered to b e given 6 hours later if needed for pulse rate more than 100. We will continue her metoprolol per or eris. Continue antibiotic Levaquin per order and we will see her tomorrow. Possible discharge to go home tomorrow depending on her don sloan ACA/BRITNEY Voice ID: [id number] Report ID: [id number]
[2025-02-25] MEDS: AMIODARONE IN DEXTROSE,ISO-OSM 360 MG/200 ML BAG IV ONE (04:30)
--- NOTE | 2025-02-25 11:03 | PN ---
Date of Progress Note: 02/25/2025 Subjective: The patient was seen this morning for followup. Last night, the patient had problem wit h atrial fibrillation with rapid ventricular rate. Her heart rate was around 140 beats per minute. Hemodynamically, she was stable. She did not respond to IV digoxin and oral metoprolol and continue to have rapid heart rate between 130 to 140 with atrial fibrillation and we started her on amiodarone IV infusion after the loading dose and the patient has responded very well to that. She denies any chest pain, shortness of breath, nausea, vomiting. Has some abdominal discomfort from her gallbladde r surgery yesterday, but not necessarily any significant pain. When I saw her this morning, her daug hters were at bedside. She is tolerating diet very well. Objective: Vital Signs: Reviewed. HEENT: Unremarkable. Lungs: Clear to auscultation. Heart: Sounds normal. Abdomen: Soft. Bowel sounds normal. No guarding, rigidity, tenderness, or distention. Extremities: No leg edema. Impression: 1. Gallstone with acute cholecystitis, status post surgery. 2. Atrial fibrillation. 3. Hypertension. Plan: We will go ahead and start her on her Xarelto 15 mg daily in the evening time as of today. It is okay with general surgeon, Dr. Dykes. We will continue amiodarone IV infusion for 24 hours, whic h will be completed this evening and starting tomorrow, we will change it to amiodarone 200 mg by jose th 2 times a day and possible discharge to go home tomorrow. Continue current antibiotic and I will see her tomorrow for followup. Details and plan of treatment discussed with the patient and her daughters. ANTONIETA/MODL Voice ID: [id number] Report ID: [id number]
--- NOTE | 2025-02-25 11:39 | PN ---
Date of Progress Note: 02/25/2025 Subjective: The patient is awake, alert, tolerating diet; however, she had an episode of atrial fibr illation. Objective: Vital Signs: Stable, afebrile. Abdomen: Soft, nondistended, nontender. Dressing is clean, dry, and intact. Assessment And Plan: The patient is cleared from surgery standpoint for discharge. Follow up in my office next week. Medical management per Dr. Gannon. /BRITNEY Voice ID: [id number] Report ID: [id number]
[2025-02-25] MEDS: RIVAROXABAN 15 MG TABLET PO SCH (16:20)
[2025-02-25] MEDS: AMIODARONE HCL 900 MG in Dextrose 5%-Water 482 ML IV SCH (16:45)
[2025-02-25] MEDS: METOPROLOL XL 25 MG TAB PO ONE (18:28)
[2025-02-25] MEDS: METOPROLOL TAR 25 MG TAB PO SCH (18:32)
[2025-02-25] MEDS: METOPROLOL TAR 25 MG TAB ONE (18:34)
[2025-02-25] MEDS: AMOX/K CLAV 500 MG TAB PO SCH (20:58)
[2025-02-26 07:24] LABS: Absolute Basophils 0.1 K/uL (0-0.5); Absolute Eosinophils 0.4 K/uL (0-0.5); Absolute Lymphocytes (CBC) 1.2 K/uL (0.7-4.9); Absolute Monocytes 1.7 K/uL (0.1-1.3); Absolute Neutrophil 11.1 K/uL (1.8-8.0); Basophils % 0.5 % (0-1.3); Eosinophils % 2.4 % (0-4.4); Hematocrit 39.8 % (36.0-45.0); Hemoglobin 13.5 g/dL (12.0-15.0); Lymphocytes % 8.2 % (15.3-44.8); MCH 32.1 pg (27.0-35.0); MCHC 33.8 g/dL (32.0-36.0); MPV 7.7 fL (7.6-11.3); Monocytes % 11.6 % (3.3-12.3); Neutrophils % 77.3 % (41.7-73.7); Platelets 283 thou/uL (152-406); RBC Red Blood Cell Count 4.19 M/uL (3.86-4.86); Red Cell Distribution Width 13.9 % (12.1-15.2)
[2025-02-26 07:39] LABS: Anion Gap 8.3 mEq/L (5.0-15.0); Magnesium 1.7 mg/dL (1.6-2.4); Potassium 3.3 mEq/L (3.5-5.1)
[2025-02-26] MEDS: MAGNESIUM SULFATE 1 gm IVPB 1 GM/100 ML BAG IV ONE (08:28)
[2025-02-26] MEDS: POTASSIUM CL SA 10 MEQ TAB PO ONE (08:28)
[2025-02-26] MEDS: AMIODARONE HCL 200 MG TAB PO SCH (08:49)
[2025-02-26 09:01] VITALS: O2SAT 97
[2025-02-26] MEDS: METOPROLOL TAR 25 MG TAB PO SCH (09:32)
[2025-02-26 12:47] VITALS: BP 123/70; TEMP 97.5
--- NOTE | 2025-02-26 23:14 | PN ---
Date of Progress Note: 02/26/2025 Subjective: The patient is awake, alert, tolerating diet. Objective: Vital Signs: Stable. Heart rate is a little up, and the patient is being monitored for that prior to her discharge by Dr. Gannon as she is converted from IV to oral medication for her heart condition. Abdomen: Benign. Assessment: Status post laparoscopic cholecystectomy. Recommendation: Patient cleared from Surgery standpoint for discharge. Discharge instructions given . I will follow up with the patient next week in my office and discharge per Dr. Gannon. /MODL Voice ID: [id number] Report ID: [id number]
--- NOTE | 2025-02-26 23:14 | DS ---
Date of Discharge: 02/26/2025 Disposition: The patient will be discharged to go home today. Physical Examination: HEENT: Unremarkable. Lungs: Clear to auscultation. Heart: Sounds normal. Abdomen: Soft, bowel sounds normal. No guarding, rigidity, tenderness, distention. Extremities: No leg edema. Laboratory Data: Upon admission, WBC 14.5, hemoglobin 14.7, platelets 349. Sodium 134, potassium 3, chloride 98, bicarb 29, BUN 14, creatinine 0.70, glucose 147. Lactic acid 1.1. Liver function tests unremarkable except total bilirubin 2.6, lipase 27. Chest x-ray shows changes of COPD otherwise no other acute intrathoracic changes. CAT scan of the abdomen and pelvis shows no acute abnormality, but presence of gallstones, diverticulosis, and possible small nonobstructing kidney stones and abdominal ultrasound shows presence of gallstones with upper limit of common bile duct size measuring 6 mm in size. Last chemistry from today, sodium 136, potassium 3.3, chloride 105, bicarb 26, BUN 8, creatinine 0.66, glucose 128, magnesium 1.7, and last WBC today 14.4, hemoglobin 13.5, platelets 283. Discharge Medications And Instructions: Continue all prior home medication except following changes. 1. Stop sotalol. 2. Start amiodarone 200 mg take 1 tablet by mouth 2 times a day. 3. Start metoprolol 25 mg, the patient to take 1-2 tablets by mouth 2 times a day. 4. Start Augmentin 500 mg take 1 tablet by mouth 2 times a day with food for 1 week. 5. Follow up at my office next week on , 03/04/2025. 6. Please follow discharge instructions as per Dr. Dykes. Hospital Course: An 84-year-old pleasant female patient who came into office with complaints of nausea, vomiting, and abdominal pain. Please see dictated H and P for more information. After the patient was evaluated at office she was admitted to hospital and further evaluation was done after she was admitted to the hospital. I was concerned about gallstones with acute cholecystitis, so she was started on IV antibiotic Levaquin, pain medication, nausea medication was ordered and general surgeon, Dr. Dykes was consulted. Day after admission, the patient had a HIDA scan done, which came back unremarkable. Dr. Dykes evaluated her and he was concerned about also gallstones with acute cholecystitis and he recommended laparoscopic cholecystectomy, which was done day before yesterday. After the surgery, the patient had atrial fibrillation with rapid ventricular rate. Initially, blood pressure was low with systolic blood pressure around 100 and she responded well to 250 cc of IV fluid bolus and IV digoxin was ordered. She required a total of 2 doses of IV digoxin and she got some IV Lopressor in the operating room, but subsequently we gave her oral Lopressor. Because of her atrial fibrillation with rapid ventricular rate, she was started on IV amiodarone infusion for 24 hours, which was completed last night. She remains in atrial fibrillation, but her heart rate still runs around 100-120, so plan is to go up on metoprolol from 25 mg 2 times a day to 50 mg 2 times a day provided she tolerates that with her blood pressure and this morning she was given 50 mg metoprolol. I will monitor her blood pressure sometime this afternoon after lunch time. Plan is to discharge her to go home. I have instructed the patient's daughter about taking metoprolol depending on the blood pressure and pulse rate reading at home, so before taking dose of metoprolol the patient should monitor her pulse and blood pressure and then make a reasonable decision about how much metoprolol to take, so I have gone over those instructions with the patient's daughter this morning. I will plan to see her next week. The patient sees her airport operations crew member, Dr. Troy next week on Friday and she also sees insurance instructor, Dr. Hope and I have instructed the patient to have followup with Dr. Troy and Dr. Hope next week. After we started her on amiodarone, Levaquin was discontinued and I started her on Augmentin, which we will plan to continue that. Final Diagnoses: 1. Gallstones with acute cholecystitis. 2. Nausea and vomiting secondary to above. 3. Hypertension. 4. Hyperlipidemia. 5. Paroxysmal atrial fibrillation. 6. Chronic anticoagulation therapy. 7. Allergic rhinitis. 8. Hypokalemia. 9. Peripheral vascular disease. 10. Diverticulosis. 11. Anxiety. 12. Depression. 13. Osteoporosis. 14. Chronic obstructive pulmonary disease. Total time spent 45 minutes. ANTONIETA/MODL Voice ID: [id number] Report ID: [id number]
--- NOTE | 2025-03-02 12:59 | EKG ---
Test Date: 2025-02-24 Test Time: 20:51:29 Heart Specialist: SANDRO MEASUREMENT RESULTS: Intervals: Rate: 143 [place]: QRSD: 74 QT: 262 QTc: 404 [place]: P: VA: QRS: 6 T: 247 INTERPRETIVE STATEMENTS: Atrial fibrillation with rapid ventricular response ST & T wave abnormality, consider inferior ischemia or digitalis effect Abnormal ECG Compared to ECG 10/24/2018 08:43:00 ST (T wave) deviation now present Possible ischemia now present Sinus rhythm no longer present Myocardial infarct finding no longer present Electronically Signed On 03-02-25 12:44:18 CDT by Collin Feng
== END 2025-02-26 14:59 | disposition home or self-care (01) | DRG 419 ==
LOC: 4TH 18:23
PROVIDERS: ADMIT Internal Medicine; ATTEND Internal Medicine
PROC: 0FT44ZZ Resection of Gallbladder, Percutaneous Endoscopic Approach (ICD-10-PCS; principal; 2025-02-24 07:30)
DX: K80.12 Calculus of gallbladder with acute and chronic cholecystitis without obstruction (principal); I48.0 Paroxysmal atrial fibrillation; R11.2 Nausea with vomiting, unspecified; E87.6 Hypokalemia; I10 Essential (primary) hypertension; K57.90 Diverticulosis of intestine, part unspecified, without perforation or abscess without bleeding; J44.9 Chronic obstructive pulmonary disease, unspecified; E78.5 Hyperlipidemia, unspecified; J30.9 Allergic rhinitis, unspecified; I73.9 Peripheral vascular disease, unspecified; F41.9 Anxiety disorder, unspecified; F32.A Depression, unspecified; M81.0 Age-related osteoporosis without current pathological fracture; N20.0 Calculus of kidney; Z95.0 Presence of cardiac pacemaker; Z85.828 Personal history of other malignant neoplasm of skin; Z87.891 Personal history of nicotine dependence; Z79.01 Long term (current) use of anticoagulants; Z79.899 Other long term (current) drug therapy; Z88.5 Allergy status to narcotic agent; Z80.1 Family history of malignant neoplasm of trachea, bronchus and lung; Z80.0 Family history of malignant neoplasm of digestive organs
CPT/HCPCS: 36415; 71045; 74177; 76705; 78227; 80048; 80053; 81003; 83605; 83690; 83735; 85025; 88304; 93005; 94010; A9537; J0282; J0694; J1160; J1171; J2250; J2405; J2470; J2704; J2805; J3010; J3475; J3480; J7042; J7050; J7060; J7120